=== PATIENT | male | born 1975 | race Caucasian/White ===

== ENCOUNTER 2019-05-30 10:41 | Inpatient (IN) | payer OTHER ==
[2019-05-30] VITALS (16 sets, daily range): BP systolic 106–135; BP diastolic 73–86
[~2019-05-30] VITALS: Ht 182.9 cm; Wt 96.2 kg
--- NOTE | ~2019-05-30 | O ---
[facility] [place] [address] OPERATIVE REPORT Name: DAVJANE Room #: 464-P ADM IN M.R.#: [id number] Admission: 05/30/19 Attend Phys: Paolo Jo MD Discharge: Date of : 71 Report #: [id number] THIS REPORT FOR: //name// CC: [facility] physician/PCP Paolo Jo PREOPERATIVE DIAGNOSES: Right sternoclavicular joint infection with right anterior subcutaneous chest abscess. POSTOPERATIVE DIAGNOSIS: Right sternoclavicular joint infection with right anterior subcutaneous chest abscess. PROCEDURE PERFORMED: Irrigation and debridement of right sternoclavicular joint infection and right anterior chest abscess. SURGEON: Chintan Jones M.D. BRICK SIDING APPLICATOR: Hollie Taylor PA-C ANESTHESIA: General. FLUIDS: 200 mL crystalloid. SPECIMENS: Cultures of the anterior chest abscess and sternoclavicular joint were obtained. DESCRIPTION OF PROCEDURE: After proper identification of the patient and operative site in preoperative holding area, the operative site was signed by myself. The patient was initially seen and treated by my partner, Dr. Jane Jacobs. The patient has developed what appears to be sternoclavicular joint infection with an anterior chest abscess to this. There does not appear to be any evidence of infection deep to the sternoclavicular joint or more intrathoracic. The patient is also being seen by ____ of Infectious Disease. After reviewing the patient's current symptoms, physical exam, and imaging data, we discussed treatment options with the patient. We reviewed the risks, benefits, alternatives and potential complications. The patient at this point wishes to proceed with the above-proposed procedure. He was brought back to the operative suite after induction of satisfactory general anesthesia per LMA. The chest was sterilely prepped and draped in the usual manner. The patient had a fullness overlying the sternoclavicular joint and very faint erythema. It was definitely asymmetric compared to the opposite side, and he had moderate tenderness over this region. An incision directly overlying the sternoclavicular joint was planned. Full thickness skin flaps were developed and the subcutaneous abscess was entered, tunneled under the subcutaneous tissues above the fascial layer for several centimeters especially in a more lateral and inferior direction. This area was bluntly debrided and then a lap on a hemostat was used to kind a mechanically debride this area followed by [address] [address] OPERATIVE REPORT Name: JANE DEMARCO Room #: 464-P ADM IN .R.#: [id number] Admission: 05/30/19 Attend Phys: Paolo Jo MD Discharge: Date of : 71 Report #: [id number] several liters of antibiotic irrigant. After this area had been fully irrigated and debrided, the sternoclavicular joint was opened anteriorly. There did not appear to be any obvious purulence to this fluid and then this was irrigated with several liters of antibiotic irrigant as well. Following this, there appeared to be one continuous pocket of fluid or abscess, did not appear to be loculated. There appeared to be no other spread of this and 3/8th inch [place] drain was placed and then the superior and inferior aspect of the incision was closed with 3-0 nylon. Plan will be for the [place] drain to be removed in several days depending on how he responds to this treatment with the potential need for further irrigation and debridement. We will continue to monitor with Dr. Jacobs. By: 0945 1108 Chintan Jones MD /nt
[2019-05-30 11:21] LABS: HEMATOCRIT 45.1 % (42.0-52.0); HEMOGLOBIN 15.2 gm/dL (14.0-18.0); MCH 27.9 pg (26.0-34.0); MCHC 33.6 g/dL (28.0-37.0); MCV 83.1 fL (80.0-100.0); PLATELET COUNT 748 thou/uL (150-400); RBC 5.44 mil/uL (4.50-6.00); RDW 14.1 % (10.5-14.5); WBC 22.5 thou/uL (4.0-11.0)
[2019-05-30 11:33] LABS: APTT 26.4 Seconds (24.5-32.8); INR 1.2; PROTIME 12.3 Seconds (9.3-11.4)
[2019-05-30 11:41] LABS: ALBUMIN 1.8 g/dL (3.4-5.0); CALCIUM 9.6 mg/dL (8.5-10.1); CREATININE 1.2 mg/dL (0.7-1.3); TOTAL BILIRUBIN 0.9 mg/dL (<0.1-1.0); TOTAL PROTEIN 9.4 g/dL (6.4-8.2)
[2019-05-30 11:50] LABS: ABSOLUTE NEUTROPHILS 19.6 thou/uL (1.4-8.2); TOXIC GRANULATION 2+
[2019-05-30 11:51] LABS: LARGE PLATELETS FEW; PLATELET ESTIMATE MARKEDLY INCREASED
[2019-05-30 11:52] LABS: POIKILOCYTOSIS SLIGHT; POLYCHROMASIA SLIGHT
--- NOTE | 2019-05-30 16:10 | NUR ---
43 Y/O MALE ADMITTED TO ICU 241 PER CART FROM THE ED. RT FOOT WOUND OOZING SEROUS SANG PURLENT FLUID. ASSESSMENT COMPLETED AND ATTACHED TO MONITOR.
--- NOTE | 2019-05-30 17:15 | NUR ---
LEFT KNEE ASPIRATED BY DR MILAN OF 50 ML OF CLOUDY YELLOW FLUID. PATIENT TOLERATED PROCEDURE WITHOUT INCIDENT.
--- NOTE | 2019-05-30 18:45 | NUR ---
PATIENT TO MRI FOR FURTHER STUDIES OF RT ANKLE AND LOWER EXTERMITY TO DETERMINE THE EXTENT OF THE INFECTION WITH CARDIA MONITOR. INSULIN DRIP OFF FOR MRI.
[2019-05-30 20:44] LABS: BF CRYSTALS No Crystals seen; SOURCE SYNOVIAL
[2019-05-30 20:45] LABS: CLARITY CLOUDY; COLOR YELLOW; SOURCE KNEE JOINT; TOTAL VOLUME 35 mL
--- NOTE | 2019-05-30 21:00 | NUR ---
BACK FROM MRI AT APPROXIMATELY 2100. INSULIN GTT RESTART. HOURLY BS INITIATED. PICTURES OF RIGHT FOOT WOUNDS TAKE AND WOUND CARE PERFROMED. MEDICATED FOR PAIN RELEIF. WILL CONTINUE TO MONITOR
[2019-05-30 21:07] LABS: BF NUCLEATED CELLS 6346; BF RBC 56400
[2019-05-30 21:17] LABS: BF MACROPHAGE 0; BF NEUTROPHILS 100
[2019-05-31] VITALS (40 sets, daily range): BP systolic 88–146; BP diastolic 54–87
[2019-05-31 00:03] LABS: CALCIUM 7.9 mg/dL (8.5-10.1); CREATININE 0.7 mg/dL (0.7-1.3)
[2019-05-31 00:06] LABS: POTASSIUM 3.8 mmol/L (3.5-5.1)
--- NOTE | 2019-05-31 05:11 | NUR ---
PT AOX4, SLOW TO PROCESS INFORMATION. TRIED TO EDUCATE ABOUT NEW DIABETIC DIAGNOSIS, PT ADAMANT HE ISN'T DIABETIC. PT CURRENTLY UNAWARE HE IS SCHEDULE FOR SURGERY THIS AM. VSS. LOW GRADE TEMP. ON 2L NC. DESATS DURING SLEEP. MEDICATED FOR PAIN RELIEF. ON INSULIN GTT, TITRATED PER PROTOCOL. TALKED TO DR. BLACKBURN ABOUT PT THIS AM. WILL CONTINUE TO MONITOR PATIENT.
[2019-05-31 05:56] LABS: HEMATOCRIT 36.8 % (42.0-52.0); HEMOGLOBIN 12.5 gm/dL (14.0-18.0); MCH 27.6 pg (26.0-34.0); MCHC 33.8 g/dL (28.0-37.0); MCV 81.6 fL (80.0-100.0); RBC 4.52 mil/uL (4.50-6.00); RDW 13.9 % (10.5-14.5); WBC 18.9 thou/uL (4.0-11.0)
[2019-05-31 06:11] LABS: CALCIUM 8.2 mg/dL (8.5-10.1); CREATININE 0.6 mg/dL (0.7-1.3); MAGNESIUM 1.6 mg/dL (1.8-2.4); POTASSIUM 3.8 mmol/L (3.5-5.1)
--- NOTE | 2019-05-31 07:59 | HC ---
[facility] [place] [place] [address] CONSULTATION Name: JANE DEMARCO Room #: 241-P ADM IN M.R.#: [id number] Admission: 05/30/19 Attend Phys: Paolo Jo MD Discharge: Date of : 71 Report #: [id number] THIS REPORT FOR: //name// CC: [facility] physician/PCP Paolo Jo DATE OF SERVICE: 05/31/2019 INFECTIOUS DISEASE CONSULTATION ATTENDING PHYSICIAN: Dr. Jo. REASON FOR EVALUATION: Severe sepsis, necrotizing infection involving his right foot. HISTORY OF PRESENT ILLNESS: The patient is a 43-year-old male without significant medical history prior to this point, who developed a lesion in right foot had increasingly got worse in course of several days and the weeks. He has had some systemic illness as well with fevers and chills, anorexia and some weight loss, became more nauseated and made it difficult to walk due to the pain. Initial evaluation suggested the diagnosis of diabetes mellitus with blood sugar excess of 500 and albumin of 1.8 as well. Creatinine was normal at 1.2. Imaging in the foot and the leg showed some changes at deep including suspected necrotizing fasciitis, myositis, trace amount of gas along the anterior margin of the posterior tibialis. There is evidence of osteomyelitis of the hind foot involving the talus and calcaneus as well. Blood cultures collected at time of admission with growth of gram-positive cocci, awaiting ID, started empirically on broad-spectrum therapy with vancomycin as well as piperacillin and tazobactam. He is not overtly toxic at this point. ALLERGIES: None known. MEDICINES: Include Zosyn, vancomycin, hydromorphone, insulin. PAST MEDICAL HISTORY: Tonsillectomy and adenoidectomy. SOCIAL HISTORY: Nonsmoker, no ethanol. FAMILY HISTORY: Noncontributory. REVIEW OF SYSTEMS: Denies significant pulmonary or gastrointestinal complaints, otherwise unremarkable 10-point review of systems. PHYSICAL EXAMINATION: GENERAL: Appears somewhat chronically ill. He is alert, cooperative, although he is in denial about a diagnosis of diabetes. [facility] [address] [place] [address] CONSULTATION Name: JANE DEMARCO Room #: 241-P [facility] IN ..#: [id number] Admission: 05/30/19 Attend Phys: Paolo Jo MD Discharge: Date of : 71 Report #: [id number] VITAL SIGNS: Temperature 98, T-max overnight 99.5, pulse 96, respirations 18 and blood pressure 124/70. SKIN: Warm, dry. HEENT: Normocephalic. Extraocular muscles intact. Poor dentition. NECK: Supple. LUNGS: Otherwise, clear breath sounds. HEART: Regular. Borderline tachycardic. I do not appreciate murmur. ABDOMEN: Soft, nontender and nondistended. EXTREMITIES: Dressing over the foot did review the some photographs showed necrotic areas along the dorsum malleolus, inflammatory changes noted extending up to the leg. GENITOURINARY AND RECTAL: Deferred. LABORATORY DATA: Electrolytes: Sodium 117, potassium 5.0, chloride 81, bicarbonate is 32, anion gap of 4, BUN and creatinine 13 and 1.2, glucose of 519. LFTs unremarkable. Albumin of 1.8, total protein of 9.4. Lactic acid 5.4 initially. CBC: White count of 22.5, H and H 15.2 and 45.1, platelets of 748, did have 28% bands, 2+ toxic granulations, procalcitonin of 7.25. Repeat lactic acid was 1.8. MRI of the tibia fibula without contrast showed necrotizing fasciitis, myositis involving the extensor digitorum longus muscle, stenosing tenosynovitis with gas in the muscle belly and tendon sheath. The MRI of the foot suspected osteomyelitis involving the hind foot, talus and calcaneus specifically. Repeat creatinine was 0.7. Blood cultures 2/2 positive for gram-positive cocci. ASSESSMENT: Necrotizing infection involving the right foot. The patient with newly diagnosed diabetes mellitus. His features clearly of septicemia as well. Continue broad-spectrum antimicrobial therapy, presume staphylococcus or streptococcus. Go ahead and order an echocardiogram, await those results. We will likely need followup blood cultures. There has been discussion, although I think that he has not at this point agreeable to go ahead with below-knee amputation. Thank you. We will follow. <ELECTRONICALLY SIGNED> By: Joaquín Denise MD 05/31/19 0759 0601 0750 Joaquín Denise MD /nt
--- NOTE | 2019-05-31 08:33 | NUR ---
TO OR PER BED AT 0823 WITH HOOP BENDING MACHINE OPERATOR.
--- NOTE | 2019-05-31 13:00 | NUR ---
1147 RETURNED TO ROOM 241 FROM PACU POST RT BKA AND LEFT KNEE ARTHOSCOPY. ATTACHED TO MONITOR AND ASSESSED, INSULIN AND MAG DRIPS INFUSING. VLADIMIR DE LEON APPLIED FOR AXILLAY TEMP OF 96.3.
--- NOTE | 2019-05-31 19:00 | NUR ---
CHENCHO DE LEON REMOVED AT 1500 PATIENT WARMED UP AND ALERT AND ORIENTED. DENIES PAIN FROM SURGICAL SITES. MOTHER AT BEDSIDE. PATIENT STILL IN DENIAL THAT HE IS DIABETIC. UPDATED MOTHER AND PATIENT WITH POC AND THAT EDUCATION WOULD BE PROVIDED AND ASSISTANCE WAS AVAILABLE. INSULIN DRIP OFF
[2019-06-01] VITALS (22 sets, daily range): BP systolic 96–127; BP diastolic 61–80
[2019-06-01 01:05] LABS: GLYCOHEMOGLOBIN (HGB A1C) 11.7 % (4.8-5.6)
--- NOTE | 2019-06-01 04:22 | NUR ---
ASSUMED CARE OF PT. AT 1900. PT. WAS PRETTY DROWSY AT THE BEGINNING OF SHIFT, BUT WOKE UP AT AROUND 2200. PT. HAS GENERALIZED PAIN FROM SURGERY. ALL DRESSINGS STILL DRY AND INTACT. INTRODUCTION TO TURN, COUGH, DEEP BREATH TOPIC. NEEDS REINFORCEMENT. VSS. ASSESSMENTS AND VITAL SIGNS CHARTED. PT. IS PROGRESSING TOWARDS GOALS. WILL CONTINUE TO MONITOR.
[2019-06-01 05:50] LABS: HEMATOCRIT 33.7 % (42.0-52.0); HEMOGLOBIN 11.3 gm/dL (14.0-18.0); MCH 27.9 pg (26.0-34.0); MCHC 33.7 g/dL (28.0-37.0); MCV 82.9 fL (80.0-100.0); RBC 4.06 mil/uL (4.50-6.00); RDW 13.8 % (10.5-14.5); WBC 16.3 thou/uL (4.0-11.0)
[2019-06-01 05:58] LABS: CALCIUM 7.4 mg/dL (8.5-10.1); CREATININE 0.5 mg/dL (0.7-1.3); MAGNESIUM 1.8 mg/dL (1.8-2.4); POTASSIUM 3.9 mmol/L (3.5-5.1)
--- NOTE | 2019-06-01 08:37 | NUR ---
PT S/P R BKA AND L KNEE I&D. THERAPY HAD NOT BEEN INITIATED PRIOR TO SURGERY. REQUEST NEW P.T. ORDERS WITH RESTRICTIONS/LIMITATIONS ONCE PT IS MEDICALLY STABLE TO PARTICIPATE IN THERAPEUTIC ACTIVITIES.
--- NOTE | 2019-06-01 09:37 | 2DMMODE ---
[facility] [place] [address] 2 D/M-MODE ECHOCARDIOGRAM Name: JANE DEMARCO Room #: 241-P ADM IN M.R.#: [id number] Admission: 05/30/19 Attend Phys: Paolo Jo, Discharge: Date of : 71 Date of Service: 06/01/19 0937 Report #: [id number] THIS REPORT FOR: //name// APPROVED REPORT Study performed: 06/01/2019 08:28:41 EXAM: Comprehensive 2D, Doppler, and color-flow Echocardiogram Patient Location: ICU Room #: 241 Status: routine BSA: 2.18 HR: 89 bpm BP: 124/74 mmHg Rhythm: NSR Other Information Study Quality: Good Indications Diabetes 2D Dimensions IVSd: 8.72 (7-11mm) LVOT Diam: 24.63 (18-24mm) LVDd: 56.03 mm PWd: 9.17 (7-11mm) Ascending Ao: 33.66 (22-36mm) LVDs: 40.69 (25-40mm) Aortic Root: 32.43 mm IVC: 18.00 mm Volumes Left Atrial Volume (Systole) Single Plane 4CH: 41.22 mL Single Plane 2CH: 30.23 mL LA ESV Index: 19.00 mL/m2 Aortic Valve AoV Peak Rodrigo.: 1.20 m/s AO Peak Gr.: 5.71 mmHg LVOT Max P.82 mmHg LVOT Max V: 1.10 m/s STAN Vmax: 4.37 cm2 Mitral Valve E/A Ratio: 1.4 MV Decel. Time: 224.17 ms MV E Max Rodrigo.: 1.07 m/s MV A Rodrigo.: 0.75 m/s [facility] [address] [place] [address] 2 D/M-MODE ECHOCARDIOGRAM Name: JANE DEMARCO Room #: [facility] IN ..#: [id number] Admission: 05/30/19 Attend Phys: Paolo Jo, Discharge: Date of : 71 Date of Service: 06/01/19 0937 Report #: [id number] MV PHT: 65.01 ms IVRT: 101.50 ms Pulmonary Valve PV Peak Rodrigo.: 1.12 m/s PV Peak Gr.: 5.00 mmHg Pulmonary Vein P Vein S: 0.45 m/s P Vein A: 0.21 m/s P Vein D: 0.44 m/s P Vein A Dur.: 92.3 msec P Vein S/D Ratio: 1.02 Tricuspid Valve TR Peak Rodrigo.: 2.88 m/s TR Peak Gr.: 33.14 mmHg PA Pressure: 38.00 mmHg Left Ventricle The left ventricle is normal size. There is normal LV segmental wall motion. There is normal left ventricular wall thickness. Left ventricular systolic function is normal. The left ventricular ejection fraction is within the normal range. LVEF is 55-60%. The left ventricular diastolic function is normal. Right Ventricle The right ventricle is normal size. The right ventricular systolic function is normal. Atria The left atrium size is normal. The right atrium size is normal. Aortic Valve The aortic valve is normal in structure. No aortic regurgitation is present. There is no aortic valvular stenosis. Mitral Valve The mitral valve is normal in structure. There is no mitral valve regurgitation noted. No evidence of mitral valve stenosis. Tricuspid Valve The tricuspid valve is normal in structure. There is trace tricuspid regurgitation. Estimated PAP 38 mmHg. Pulmonic Valve The pulmonary valve is normal in structure. There is no pulmonic valvular regurgitation. [address] [address] 2 D/M-MODE ECHOCARDIOGRAM Name: JANE DEMARCO Room #: 241-P [facility] IN [facility].#: [id number] Admission: 05/30/19 Attend Phys: Paolo Jo, Discharge: Date of : 71 Date of Service: 06/01/19 0937 Report #: [id number] Great Vessels The aortic root is normal in size. IVC is normal in size and collapses >50% with inspiration. Pericardium There is no pericardial effusion. <Conclusion> Left ventricular systolic function is normal. There is normal LV segmental wall motion. LVEF is 55-60%. Normal diastolic The aortic valve is normal in structure. No aortic regurgitation or stenosis. The mitral valve is normal in structure. No mitral valve regurgitation. There is trace tricuspid regurgitation. Estimated pulmonary artery pressure of 38 mmHg. There is no pericardial effusion. <ELECTRONICALLY SIGNED> By: Pipe Green MD, FACC 06/01/1939 6 Pipe Green MD, FACC /INF
--- NOTE | 2019-06-01 09:52 | NUR ---
New onset diabetes and s/p BKA on 05/31. Will address nutrition education needs with pt and mother once transferred out of ICU, diet advanced and more stable.
--- NOTE | 2019-06-01 12:29 | O ---
[facility] [place] [address] OPERATIVE REPORT Name: JANE DEMARCO Room #: 241-P ADM IN M.R.#: [id number] Admission: 05/30/19 Attend Phys: Paolo Jo MD Discharge: Date of : 71 Report #: [id number] THIS REPORT FOR: //name// CC: [facility] physician/PCP Paolo Jo DATE OF SERVICE: 05/31/2019 PREOPERATIVE DIAGNOSES: 1. Left knee septic arthritis. 2. Right leg gangrene. POSTOPERATIVE DIAGNOSES: 1. Left knee septic arthritis. 2. Right leg gangrene. PROCEDURES: 1. Left knee irrigation and debridement arthroscopic. 2. Right ecqpo-vhi-jder amputation. SURGEON: Jane Jacobs M.D. ANESTHESIA: General. ESTIMATED BLOOD LOSS: 50 mL on the right and 0 on the left. TOURNIQUET TIME: On the left was 20 minutes and on the right was 45 minutes. DESCRIPTION OF PROCEDURE: The patient brought to the operating room where he was placed under general anesthesia. Once under adequate general anesthesia, his left lower extremity was prepped and draped in sterile manner. The extremity was elevated and tourniquet placed to 300 mmHg. An anterolateral arthroscopic portal was then made in the usual fashion. Abundant purulence did emanate from the joint. A suprapatellar portal was then placed for an outflow. The fluid was then driven through the joint to irrigate, approximately 6 L of normal saline solution was flushed through the joint for irrigation. Once complete, a Hemovac drain was placed through the suprapatellar portal and the wounds were closed with pablo for the skin. The wounds were dressed with Xeroform, 4 x 4s, and sterile soft compressive dressing was placed. Tourniquet was let down at 20 minutes. Toes were pink and warm with good capillary refill. The right lower extremity was then prepped and draped in a sterile manner. The extremity was elevated and a tourniquet placed 300 mmHg. A fishmouth type incision was then made sharply dissecting down to the tibia anteriorly and the fibula laterally. Exposure was made. There was some purulence noted as well. A pulsatile lavage was used to irrigate the wound and the anterior compartment was debrided with a rongeur. A fishmouth incision was taken down to the [address] [address] OPERATIVE REPORT Name: JANE DEMARCO Room #: 241-P [facility] IN M.R.#: [id number] Admission: 05/30/19 Attend Phys: Paolo Jo MD Discharge: Date of : 71 Report #: [id number] circumferentially and an oscillating saw was used to transect the tibia and a few centimeters proximal to this level, the fibula was then transected with the oscillating saw as well. The anterior tibia was then bevelled with the oscillating saw and the amputation was completed. The posterior tibial vessels were suture ligated with 0 silk suture. The wound was irrigated once again copiously and closed with #1 Vicryl in the deep fascia, repairing the posterior flap to the anterior tibia, 0 Vicryl was used in the deep fascial layer, 2-0 Vicryl was used in subcutaneous tissues, and pablo were used for the skin. A Hemovac drain had been placed prior to wound closure. The wound was dressed with Xeroform, 4 x 4s, and a sterile soft compressive dressing was placed. Tourniquet was let down at approximately 45 minutes. There were no complications from the procedure. The patient tolerated the procedure well and went to the recovery room without incident. <ELECTRONICALLY SIGNED> By: Jane Jacobs MD 06/01/19 1229 1052 1114 Jane Jacobs MD /nt
--- NOTE | 2019-06-01 16:54 | NUR ---
INITIAL ASSESSMENT: Received consult for discharge planning. SW reviewed chart and spoke with attending physician. Pt was admitted from home due to right foot osteomyelitis/severe sepsis. Pt is POD#1 right BKA nd left knee I&D. Pt is on IV abx. Therapies ordered to evaluate pt. Pt remains in ICU. SW met with pt at bedside. Introduced role of SW. Pt is alert/orientated. Pt states he lives at home with his mother. Prior to admission, pt was independent with ADLs. No use of DME. No hx of services. SW discussed that [facility] is following pt for possible admission to in acute rehab. Pt is agreeable with going to [facility]. Pt requested SW contact his mother. Pt unable to answer if he has health insurance. Per chart, pt lives in a duplex with his mother. 8 steps to ener the duplex. Pt is not employed. Pt does not have a PCP. Awaiting therapy evals and [facility] eval at this time. Face sheet faxed to [employer] to assist with Medicaid application or financial assistance. SW is following to assist as needed with discharge planning.
[2019-06-01 18:06] LABS: URINE BILIRUBIN NEGATIVE (Negative); URINE BLOOD 3+ (Negative); URINE CLARITY CLEAR; URINE COLOR YELLOW; URINE GLUCOSE-RANDOM* 1+ (Negative); URINE KETONES NEGATIVE (Negative); URINE LEUKOCYTES-REFLEX TRACE (Negative); URINE NITRITE-REFLEX NEGATIVE (Negative); URINE PROTEIN (DIPSTICK) TRACE (Negative)
[2019-06-01 18:13] LABS: CASTS None Seen /LPF (None Seen); CRYSTALS None Seen /LPF (None Seen); SQUAMOUS None Seen /LPF (0-3); URINE RBC 3-10 Few /HPF (0-2); URINE WBC-REFLEX 0-5 Rare /HPF (0-5)
--- NOTE | 2019-06-01 19:54 | NUR ---
ASSUMED CARE THIS AM, AWAKE AND ALERT. OX4. COMPLIANTS OF PAIN IN RIGHT SHOULDER, ACROSS CHEST AND NECK. MOTHER AT BEDSIDE AND SAYS THIS HAS BEEN GOING ON FOR ABOUT A WEEK. DR. QUIROZ INFORMED. LOW GRADE TEMP TODAY. DILAUDID 0.5 GIVEN WITH GOOD PAIN CONTROL. HEMOVACS TO R BKA AND LEFT KNEE INTACT AND COMPRESSED. DRESSINGS CDI. OT AND PT TO SEE PATIENT. BLOOD SUGARS CONTINUE TO BE HIGH. SLIDING SCALE STARTED AND CARB CONTROLLED DIET. TRANSFER TO MED SURG UNIT WHEN BED AVAILABLE
[2019-06-02] VITALS (7 sets, daily range): BP systolic 113–134; BP diastolic 59–82
[2019-06-02 05:16] LABS: ABSOLUTE NEUTROPHILS 10.6 thou/uL (1.4-8.2); BASOPHILS 1.2 % (0.0-2.0); EOSINOPHILS 0.8 % (0.0-3.0); HEMATOCRIT 31.3 % (42.0-52.0); HEMOGLOBIN 10.7 gm/dL (14.0-18.0); LYMPHOCYTES 11.2 % (24.0-44.0); MCH 28.3 pg (26.0-34.0); MCHC 34.1 g/dL (28.0-37.0); MCV 82.8 fL (80.0-100.0); MONOCYTES 6.4 % (1.0-8.0); PLATELET COUNT 449 thou/uL (150-400); POLYS 80.4 % (36.0-66.0); RBC 3.78 mil/uL (4.50-6.00); RDW 13.9 % (10.5-14.5); WBC 13.1 thou/uL (4.0-11.0)
--- NOTE | 2019-06-02 05:36 | NUR ---
PT IS BEING TRANSFERED OUT TO MED SURG RM 464. REPORT GIVEN TO HIEN ELY. STABLE VITALS . PAIN WELL CONTROLLED. PT HAD A LOW GRADE FEVER OVERNIGHT, LAST TEMP 98.9. PT WAS UPDATED ON PLAN OF CARE, AND I CALLED VALERIY HIS MOM AND LEFT MESSAGE ON HER PHONE.
[2019-06-02 05:42] LABS: CREATININE 0.5 mg/dL (0.7-1.3); POTASSIUM 3.8 mmol/L (3.5-5.1); TOTAL BILIRUBIN 0.4 mg/dL (<0.1-1.0); TOTAL PROTEIN 5.4 g/dL (6.4-8.2)
--- NOTE | 2019-06-02 06:33 | NUR ---
PATIENT ARRIVED IN THE UNIT AROUND 0600. PATIENT SLOW TO RESPOND TO QUESTIONS ASKED. LEFT KNEE AND RBKA DRESSING ARE C/D/I, HEMOVAC INTACT. PATIENT DENIED PAIN OR DISCOMFORT. PATIENT IN BED ASLEEP AT THIS TIME BREATHING REGULAR AND UNLABOURED
--- NOTE | 2019-06-02 16:06 | PATH ---
[facility] [place] [address] PATHOLOGY RPT PROCEDURE Name: JANE VARGAS Room #: 464-P ADM IN M.R.#: [id number] Admission: 05/30/19 Date of : 71 Discharge: Report #: [id number] Path Case #: [id number] [facility] Accession Number: [id number] . 01 Material submitted: . foot - RIGHT FOOT/ ANKLE BKA. Modifiers: right . 01 Clinical history: . Septic left knee, right leg gangrene . 02 Diagnosis: Lower extremity, right, below knee amputation: - Skin of foot with multiple ulcerations and associated underlying acute abscesses. - Viable skin and subcutaneous tissue present at margin of excision, however, deep subcutaneous tissue at margin of excision contains acute abscess. - Anterior and posterior arteries with mild to moderate calcified atherosclerosis, non-occlusive. . (MARCE:sam; 06/02/2019) QLM/06/02/2019 . 02 Electronically signed: . Renzo Caban MD, Pathologist NPI- [id number] . 01 Gross description: . The specimen is received fresh in a red biohazard bag, labeled "Jane Vargas". No source is listed on the container. The source is listed on the requisition as, "right foot/ankle (BKA)". Received is a right uatdo-ugm-njnm amputation specimen measuring 26.2 cm from heel to toe, 19.3 cm from heel to skin margin, 26.8 cm from heel to tibial bone margin, and 29.8 cm from heel to fibular bone margin. The skin and soft tissue margins are viable. All five toes are present. Surrounding both ankles, extending onto the posterior and anterior aspects, and continuing down onto the foot are multiple light darling to red-brown, necrotic-appearing lesions ranging in size from 0.8 x 0.6 to 10.1 x 4.5 cm in greatest dimensions. All of these lesions encompass approximately 20% of the epidermal surface (gross photographs are taken). Sectioning through several of the lesions reveals-tinged exudate in the underlying soft tissue. Sectioning through the anterior tibial vasculature reveals patent lumens without calcification. Sectioning through the posterior tibial vasculature reveals patent lumens with a slight amount of calcification. The specimen is submitted representatively as follows: . A1 skin and soft tissue margin [address] [address] PATHOLOGY RPT PROCEDURE Name: JANE VARGAS Room #: 464-P ADM IN M.R.#: [id number] Admission: 05/30/19 Date of : 71 Discharge: Report #: [id number] Path Case #: [id number] A2 specialty sales representative sections of lesion overlying lateral malleolus A3 specialty sales representative sections of lesion on proximal dorsal aspect of foot A4 specialty sales representative sections of lesions on distal dorsal aspect of foot and medial aspect of foot proximal to medial malleolus A5 specialty sales representative sections of lesion overlying Achilles area proximal to the heel A6 anterior tibial vasculature A7 posterior tibial vasculature, following light decalcification. . Please see attached photographs for diagram of where sections were taken from. (CAA; 06/01/2019) QAC/QAC . 02 Pathologist provided ICD-10: K62.1 . 02 CPT . 550353 Specimen Comment: A courtesy copy of this report has been sent to Specimen Comment: [phone]. Specimen Comment: Report sent to Performed at: [address] [facility], [place] [id number] MD Jay Garnica MD Phone: [phone] Performed at: [address] [id number] MD Lorene Becerra MD Phone: [phone]
--- NOTE | 2019-06-02 17:28 | NUR ---
[facility] FOLLOWING FOR POSSIBLE ADMISSION. CM TO FOLLOW INDICATED WITH DC PLANNING.
--- NOTE | 2019-06-02 17:54 | NUR ---
PT STABLE THROUGHOUT SHIFT. DRESSINGS CHANGED. PT HAD CT OF SHOULDER WHICH HE TOLERATED WELL. PT TO HAVE PORCEDURE ON SHOULDER TOMORROW, CONSENT SIGNED AND ON CHART. PT C/O PAIN, MANAGED WITH MEDICATION. FAMILY AT BEDSIDE.
--- NOTE | 2019-06-02 19:07 | NUR ---
PATIENT SEEN BY GABRIELA SIMONS NP WITH DR. RUTHERFORD. ANTICIPATE THAT PATIENT WILL MEET CRITERIA FOR ACUTE REHAB. WILL FOLLOW AND CONTINUE TO EVALUATE. THANK YOU FOR THIS REFERRAL.
[2019-06-03] VITALS (11 sets, daily range): BP systolic 133–149; BP diastolic 80–90
--- NOTE | 2019-06-03 04:24 | NUR ---
Assumed pt care at 1900. Pt is A/OX4 with a flat affect. VSS. C/o pain to right shoulder/left knee medicated per EMAR with relief reported. Pt aware of I&D scheduled for today and has been NPO since midnight. Casper to DD draining dark yellow urine. IVF infusing without any problems. Dsgs to Right stump,left knee C/D/I.Resting quietly at this time with no distress noted. Will continue to monitor.
[2019-06-03 05:56] LABS: HEMATOCRIT 32.5 % (42.0-52.0); HEMOGLOBIN 10.8 gm/dL (14.0-18.0); MCH 27.4 pg (26.0-34.0); MCHC 33.3 g/dL (28.0-37.0); MCV 82.1 fL (80.0-100.0); RBC 3.96 mil/uL (4.50-6.00); RDW 13.8 % (10.5-14.5); WBC 12.4 thou/uL (4.0-11.0)
[2019-06-03 06:25] LABS: CALCIUM 7.6 mg/dL (8.5-10.1); CREATININE 0.7 mg/dL (0.7-1.3); MAGNESIUM 1.9 mg/dL (1.8-2.4); POTASSIUM 4.1 mmol/L (3.5-5.1)
--- NOTE | 2019-06-03 20:53 | NUR ---
ASSUMED CARE OF PT AT APPROX 0700. PT IS LAERT AND ORIENTED X3. FORGETFUL AT TIMES. ABLE TO MAINTAIN 02 SAT >90 ON 2LNC. ASSEEMENT CHARTED. PT DOWN FOR I AND D OF LEFT SHOULDER RETURNED AROUND LUNCH TIME. NAD NOTED. PARRA TO DD WITH ADEQUATE OUTPUT. PT MAKING SLOW PROGRESS TOWARDS POC.
[2019-06-04 00:46] VITALS: BP 142/77
[2019-06-04 03:55] VITALS: BP 141/77
[2019-06-04 04:28] VITALS: BP 141/77; BP 150/59
--- NOTE | 2019-06-04 06:16 | NUR ---
A/O X 4.FEBRILE.TYLENOL AND BLOOD CULTURES WAS ORDERED BY LOW VOLTAGE ELECTRICIAN.AFEBRILE THIS AM.PARRA TO DD.BLOOD GLUCOSE 319.LANTUS AND SLIDING SCALE GIVEN.TRIED TO TITRATE O2 TO ROOM AIR BUT PATIENT'S SPO2 WAS 90% THIS AM AND PLACED PT BACK TO 2L NASAL CANNULA.WILL MONITOR AND CONTINUE POC.
[2019-06-04 07:06] LABS: HEMATOCRIT 32.2 % (42.0-52.0); HEMOGLOBIN 11.1 gm/dL (14.0-18.0); MCH 28.3 pg (26.0-34.0); MCHC 34.6 g/dL (28.0-37.0); MCV 81.7 fL (80.0-100.0); RBC 3.94 mil/uL (4.50-6.00); RDW 14.1 % (10.5-14.5); WBC 13.7 thou/uL (4.0-11.0)
[2019-06-04 07:21] LABS: CALCIUM 7.6 mg/dL (8.5-10.1); CREATININE 0.7 mg/dL (0.7-1.3); POTASSIUM 4.1 mmol/L (3.5-5.1)
[2019-06-04 07:53] VITALS: BP 134/78
--- NOTE | 2019-06-04 14:40 | NUR ---
[facility] FOLLOWING REGARDING POSSIBLE ADMISSION ONCE MEDICALLY STABLE. CM TO NATASHA INDICATED WITH DC PLANNING.
[2019-06-04 15:56] VITALS: BP 133/72
[2019-06-04 19:31] VITALS: BP 142/86
[2019-06-05 03:45] VITALS: BP 141/84
--- NOTE | 2019-06-05 04:51 | NUR ---
ASSESSMENT: PT REMAIN ALERT AND ORIENT TIMES FOUR, SLOW TO RESPOND TO QUESTIONS, DOES HAVE A FLAT AFFECT, AND APPEARS TO UNDERSTAND WHAT IS GOING ON WITH HIS CARE. RIGHT CHEST DANO DRAIN NOTED WITH SS DRAINAGE. PARRA PATENT WITH DARK JUAN ANTONIO UO. NO MBM THIS SHIFT. NEW IV INITIATED OF RIGHT FA 22G. IV HYDROMORHONE GIVEN WITH GOOD RELIEF PER PT. VVS, AFEBRILE. SLOW PROGRESS, WILL CONTINUE TO MONITOR.
--- NOTE | 2019-06-05 06:47 | NUR ---
ASSESSMENT: PT HAS HAD TWO EPISODES OF PROJECTILE VOMITING. ZOFRAN ORDERED.
[2019-06-05 08:00] VITALS: BP 135/78
[2019-06-05 09:15] LABS: HEMATOCRIT 31.9 % (42.0-52.0); HEMOGLOBIN 10.8 gm/dL (14.0-18.0); MCH 27.8 pg (26.0-34.0); MCHC 33.9 g/dL (28.0-37.0); MCV 82.1 fL (80.0-100.0); RBC 3.88 mil/uL (4.50-6.00); WBC 15.1 thou/uL (4.0-11.0)
[2019-06-05 09:27] LABS: CALCIUM 7.9 mg/dL (8.5-10.1); CREATININE 0.6 mg/dL (0.7-1.3); POTASSIUM 3.9 mmol/L (3.5-5.1)
[2019-06-05 09:32] LABS: CHOLESTEROL 103 mg/dL (<200); HDL CHOLESTEROL 17 mg/dL (>40); LDL CHOLESTEROL 67 mg/dL (<100); TC:HDL 6.1 Ratio (Not establshd); TRIGLYCERIDE 99 mg/dL (<150); VLDL 20 mg/dL (<40)
--- NOTE | 2019-06-05 13:36 | NUR ---
Received awake on bed. Due medications given as prescibed, able to swallow tablets w/o difficulty. A+Ox4, flat affect noted. On room air. On blood sugar monitoring- taken and recorded, sliding scale insulin given as prescribed. With salas in place, draining well- output measured and recorded accordingly. With keeley drain in place. With NS at 100cc/hr infusing well at R FA. With R BKA- dressing C/D/I, dispensing operator in place. Pt's mom in bedside. [facility] shift lead nurse reported pt has been having projectile vomiting, none noted dursing my shift, pt complained of nausea- PRN Zofran given as prescribed. Complained of pain, PRN pain meds given as prescribed. Pt seen by Dr Jacobs. Dr Jacobs called this PM- to remove keeley drain. Vital signs stable.
[2019-06-05 15:00] VITALS: BP 139/83
--- NOTE | 2019-06-05 17:46 | NUR ---
PATIENT HAS BEEN ACCEPTED TO [address] [place] [address]/ACUTE REHAB WHEN MEDICALLY READY. ANTICIPATE ADMISSION ON Saturday06/08/19. THANK YOU FOR THIS REFERRAL.
[2019-06-05 22:06] LABS: CALCIUM IONIZED* 4.7 mg/dL (4.5-5.6)
[2019-06-05 22:09] VITALS: BP 131/82
[2019-06-06 00:08] LABS: GLYCOHEMOGLOBIN (HGB A1C) 11.4 % (4.8-5.6)
--- NOTE | 2019-06-06 04:14 | NUR ---
ASSUMED CARE AROUND 1900. AXOX4. L KNEE DRESSING CDI. CHEST DRESSING CDI. STUMP SHIRINKER ON R BKA SITE. DENIES PAIN AT THIS TIME. NO S/S ACUTE DISTRESS NOTED OR REPORTED AT THIS TIME. WILL CONT TO MONITOR FOR ANY CHANGES IN CONDITION.
[2019-06-06 05:02] VITALS: BP 146/76
[2019-06-06 05:43] LABS: HEMATOCRIT 31.7 % (42.0-52.0); HEMOGLOBIN 10.7 gm/dL (14.0-18.0); MCH 27.9 pg (26.0-34.0); MCHC 33.8 g/dL (28.0-37.0); MCV 82.5 fL (80.0-100.0); RBC 3.85 mil/uL (4.50-6.00); RDW 13.9 % (10.5-14.5); WBC 11.6 thou/uL (4.0-11.0)
[2019-06-06 05:53] LABS: CALCIUM 7.8 mg/dL (8.5-10.1); CREATININE 0.6 mg/dL (0.7-1.3); POTASSIUM 3.5 mmol/L (3.5-5.1)
--- NOTE | 2019-06-06 08:09 | HC ---
[facility] [place] [address] CONSULTATION Name: JANE DEMARCO Room #: 464-P ADM IN M.R.#: [id number] Admission: 05/30/19 Attend Phys: Paolo Jo MD Discharge: Date of : 71 Report #: [id number] THIS REPORT FOR: //name// CC: YAMILE physician/PCP Paolo Jo DATE OF SERVICE: 06/03/2019 HISTORY OF PRESENT ILLNESS: We were asked to see the patient by Dr. Savage. The patient is a 43-year-old admitted 05/30/2019 with right foot infection. The patient was found to have subcutaneous gas on x-ray of the foot consistent with infection and clinically the patient was felt to be septic. All of this related to uncontrolled diabetes mellitus. The patient had a right bpont-pwi-aela amputation for the right foot gangrene and left knee arthroscopic exam with irrigation and debridement for septic arthritis. On 05/31/2019, the patient has had positive blood cultures for Staph aureus and a right supraclavicular joint infection was found and this was drained today by the orthopedic surgeons. A question was raised regarding endothelial infection because of persistent bacteremia, but the only imaging study pertinent is a transthoracic echo 05/30/2019 that was normal. No chest x-ray or chest CT scan exists currently. CURRENT MEDICATION: The patient reports taking no medication at home. Currently, the patient is on insulin, vancomycin, Zosyn, famotidine, narcotics for postoperative pain. ALLERGIES: None known. SOCIAL HISTORY: Tobacco use. The patient claims to be a nonsmoker and denies drug use. REVIEW OF SYSTEMS: CONSTITUTIONAL: Denies chills. EYES: Denies visual change. HEENT: Denies headache, rhinorrhea, sore throat. RESPIRATORY: Denies cough, shortness of breath. CARDIAC: Denies chest pain or palpitations. GASTROINTESTINAL: Had nausea and vomiting on admission, but denies GI blood loss. GENITOURINARY: No burning, frequency, urgency or blood. MUSCULOSKELETAL: No back pain, muscle pain. SKIN: Right foot infection as on admission. ENDOCRINE: Denies having diabetes. HEMATOLOGIC AND LYMPHATIC: No bleeding, no bruisability. [facility] [address] [place] [address] CONSULTATION Name: JANE DEMARCO Room #: 464-P [facility] IN .R.#: [id number] Admission: 05/30/19 Attend Phys: Paolo Jo MD Discharge: Date of : 71 Report #: [id number] PHYSICAL EXAMINATION: VITAL SIGNS: Blood pressure 133/83, heart rate 92, respiratory rate 18, temperature 98.2, O2 sat 90%. GENERAL: When examined, the patient was postop in the recovery room after the sternoclavicular debridement. He was a bit drowsy but answered questions and seemed to be in a reasonable state with some postoperative discomfort. HEENT: No scleral icterus, no arcus. Oral poor dentition. NECK: No mass, no bruit. CHEST: Clear. HEART: Rhythm regular. No murmurs. ABDOMEN: Soft. EXTREMITIES: We note the recently drained right supraclavicular infection and right xqcsv-nnf-cuzp amputation. SKIN: As mentioned, incisions in those areas. NEUROLOGIC: No obvious motor or sensory dysfunction. PSYCHIATRIC: Answers questions appropriately and although a bit groggy, oriented. ASSESSMENT AND PLAN: The patient has multiple areas of skin, soft tissue and deeper infection with persistent bacteremia. We understand the concerns related to endothelial infection, but there is no data as yet to substantiate this. We will await with the results of the transesophageal echo now scheduled for tomorrow for any other recommendations. Thank you for the consult. <ELECTRONICALLY SIGNED> By: Barry Gonzalez MD 06/06/19 0809 [id number] Barry Gonzalez MD /nt
[2019-06-06 08:12] VITALS: BP 133/77
[2019-06-06 15:51] VITALS: BP 140/84
--- NOTE | 2019-06-06 16:44 | NUR ---
Received awake on bed. Due medications given as prescribed. A+Ox4. On 2lpm via nasal cannula. With NS at 100cc/hr, infusing well at R FA. On blood sugar monitoring, taken and recorded accordingly. With salas in place, draining well- output measured and recorded. With R BKA- elevated on a pillow, hired hand in place, dressing changed today as per wound nurse orders; dressing on L knee dressing changed as well. A/w BRIONNA schedule. Vital signs stable. Pt visited by his mother today. Pt seen by PT today, tried to transfer on chair with AO3, unable to transfer him. Pt with skin tear on his bottom, pt turned on his sides, barrier cream applied. Pt encouraged to eat and drink. Assisted in ADLs. No nausea and vomiting noted today, afebrile the whole shift. Falls risk- falls bundle in place.
[2019-06-06 19:55] VITALS: BP 147/89
[2019-06-07 03:59] VITALS: BP 139/95
--- NOTE | 2019-06-07 04:53 | NUR ---
ASSUMED CARE AROUND 1900. AXOX4. L KNEE DRESSING, R BKA STUMP, MID CHEST DRESSIGS CDI. REFUSED TURNS. TRIED TO EXPLAINED THE R&B AND TRIED TO CONVICE FOR TURNS. REFUSES. NO S/S ACUTE DISTRESS NOTED OR REPORTED AT THIS TIME. WILL CONT TO MONITOR FOR ANY CHANGES IN CONDITION.
[2019-06-07 07:52] VITALS: BP 123/75
[2019-06-07 14:04] VITALS: BP 145/91
--- NOTE | 2019-06-07 15:18 | HC ---
[facility] [place] [address] CONSULTATION Name: DL DEMARCO Room #: 464-P ADM IN M.R.#: [id number] Admission: 05/30/19 Attend Phys: Paolo Jo MD Discharge: Date of : 71 Report #: [id number] THIS REPORT FOR: //name// CC: YAMILE physician/PCP Paolo Jo DATE OF SERVICE: 05/30/2019 WOUND CARE CONSULTATION NOTE REASON FOR CONSULTATION: Gangrene of right foot and new onset diabetic patient. HISTORY OF PRESENT ILLNESS: The patient is a 43-year-old gentleman with no previous history of diabetes mellitus, who presented himself to the Emergency Room at [facility], after first noticing a wound of his right foot two weeks ago. This got worse and worse. The foot became red with drainage and pain. The patient therefore came to the Emergency Room. He denies any previous history of diabetes. He has no history of significant medical illness. ALLERGIES: No known allergies. MEDICATIONS: No home medications. SOCIAL HISTORY: Does not smoke or drink. PAST SURGICAL HISTORY: Tonsillectomy. LABORATORY DATA: Today shows white blood count of 22,500. PHYSICAL EXAMINATION: GENERAL: Shows a generally well-appearing, young male, age 43, in no acute distress. His skin color is good. VITAL SIGNS: Pulse rate 103, respirations 16, temperature 37.2, blood pressure 112/75. HEENT: Mucous membranes are slightly dry. EXTREMITIES: Upper extremities are normal. ABDOMEN: Soft. Left leg shows no wounds. Examination of the right leg and foot shows gangrenous changes of the right foot. The right foot to the ankle is very edematous and reddened. There are dark necrotic black surface areas of skin on the dorsum of the foot and laterally with full-thickness gangrene of the skin. Examination of the lateral foot shows pus draining from an opening over the lateral malleolus. The entire foot is edematous, red, extremely tender, with focal gangrenes of the skin and draining pus laterally. Redness extends to the ankle. Slight patch of redness, anterior mid-calf, but not continuous with the foot. [facility] [address] [place] [address] CONSULTATION Name: BRANDEN DEMARCOEW Room #: 464-P ADM IN M.R.#: [id number] Admission: 05/30/19 Attend Phys: Paolo Jo MD Discharge: Date of : 71 Report #: [id number] IMPRESSION: Severe soft tissue infection of the right foot with focal gangrenous changes of the skin. Clinical abscess, involving the foot. The patient does not appear systemically septic, markedly with leukocytosis. Slight tachycardia. Severe dehydration. I spoke on the phone with Dr. Dl Jacobs, described the wound and indicated the need for surgical intervention. PLAN: 1. Vigorous fluid resuscitation. 2. Diabetes control with insulin, intravenous antibiotics. We will dress the wound with Silvadene, Xeroform and a Kerlix wrap. The patient will be made n.p.o. after midnight. Dr. Jacobs will evaluate and make surgical decisions. Counseled the patient about the possible need for surgery and threatened nature of the limb. MRI ordered by Dr. Jo to rule out bony involvement. The patient will be stabilized on IV fluid resuscitation and antibiotics and prepared for surgery. <ELECTRONICALLY SIGNED> By: Kumar Cuevas MD 06/07/19 1518 1639 0001 Kumar Cuevas MD /nt
[2019-06-07 20:45] VITALS: BP 132/80
--- NOTE | 2019-06-07 21:39 | NUR ---
PT A&OX4, VSS, DENIES PAIN/SOA/CHEST PAIN. ANTIBIOTICS HUNG ORDERED, NORMAL SALINE INFUSING ORDERED. MOTHER AT BEDSIDE. PATIENT REFUSED HALF Q2 TURNS, PATIENT IS BEGINNINGS TO HAVE BREAKDOWN ON BUTTOCK. POSSIBLE STAGE ONE ULCER ON RIGHT BUTTOCK PRESENT, WILL CONSULT WOUND CARE. PHOTO HAS BEEN TAKEN. WOUND CARE DRESSING CHANGED TODAY. PATIENT VOMITED AFTER BREAKFAST TODAY, ZOFRAN GIVEN. PATIENT HAS NOT WANTED TO EAT FOR THE REST OF DAY. WILL CONTINUE TO MONITOR.
--- NOTE | 2019-06-08 05:25 | NUR ---
PATIENT ALERT AND ORIENTED X4. DRESSING ON CHEST D/I. DRESSONG ON L KNEE D/I. DRESSING AND STUMP CHARACTER ARTIST ON RBKA INTACT. DENIES PAIN. ACCUCHECK WAS 79, OJUICE GIVEN. PARRA PATENT JUAN ANTONIO URINE. STAGE II WOUND ON COCCYX. BARRIER CREAM APLIED. SLEPT MOST OF NIGHT.
[2019-06-08 05:29] LABS: HEMATOCRIT 31.9 % (42.0-52.0); HEMOGLOBIN 10.6 gm/dL (14.0-18.0); MCHC 33.1 g/dL (28.0-37.0); MCV 81.6 fL (80.0-100.0); RBC 3.9 mil/uL (4.50-6.00); WBC 18.3 thou/uL (4.0-11.0)
[2019-06-08 05:52] LABS: CALCIUM 7.8 mg/dL (8.5-10.1); CREATININE 0.5 mg/dL (0.7-1.3); POTASSIUM 3.2 mmol/L (3.5-5.1)
[2019-06-08 08:51] VITALS: BP 140/76
--- NOTE | 2019-06-08 10:40 | NUR ---
Nutrition education completed with mother and pt on 06/03
--- NOTE | 2019-06-08 15:39 | NUR ---
PT IS TO BE NPO THIS EVENING AND IS TO HAVE A BRIONNA TOMORROW MORNING. PT WILL THEN GO TO [facility]. CM TO FOLLOW INDICATED WITH DC PLANNING.
[2019-06-08 16:36] VITALS: BP 126/68
[2019-06-08 20:08] VITALS: BP 148/76
--- NOTE | 2019-06-08 20:27 | NUR ---
CONSULTED TO PLACE A PICC FOR A PATIENT NEEDING HOME IV ANTIBIOTICS. ORDER AND CONSENT NOTED. THE PROCEDURE WELL BENIFITS AND RISK OF DVT AND INFECTION DISCUSSED AND HE VERBALIZED UNDERSTANDING, THE LEFT UPPER ARM BASILIC WAS WIDLEY PATENT. A #4F SINGLE LUMEN POWER PICC WAS PLACED PER HOSPITAL POLICY AFTER A BEDSIDE TIMEOUT WAS COMPLETED. PICC WAS TRIMMED TO 47CM AND ADVANCED WITHOUT DIFFICULTY. A STAT CHEST XRAY CONFIRMED THE PICC WAS IN GOOD POSITION. 4W APRON TRIMMER NOTIFIED THAT LINE IS RELEASED FOR USE
--- NOTE | 2019-06-08 21:36 | NUR ---
Assumed pt care this am, pt is refuses to drink his supplements or have a decent part of his meals. Pt prefers to have popsicles throug out the day. Does not want to stick to the care plan, initially refused wound care til late in the afternoon during shift change. Wound care consulted for the right buttors, care done. Wound dressing and stump care done. Blood sugar levels would be low due to poor intake, offered orange juice in the am leverl elevatedx. POC followed , no signs of distress have been noted or verbalized. Pt is to be NPO this midnight for BRIONNA lynette am, pt is advised.
[2019-06-09 03:59] VITALS: BP 160/77
--- NOTE | 2019-06-09 04:44 | NUR ---
ASSUMED CARE AROUND 1900. AXOX3. ZOYA PICC INSERTED AND IN USE PER VASCULAR ACCESS TEAM. NO S/S ACUTE DISTRESS NOTED OR REPORTED AT THIS TIME. KEPT NPO FOR BRIONNA IN AM. WILL CONT TO MONITOR FOR ANY CHANGES IN CONDITION.
--- NOTE | 2019-06-09 09:10 | TEE ---
[facility] [place] [address] TRANSESOPHAGEAL ECHOCARDIOGRAM Name: JANE DEMARCO Room #: 464-P [facility] IN M.R.#: [id number] Admission: 05/30/19 Attend Phys: Paolo Jo, Discharge: Date of : 71 Date of Service: 06/09/19 0910 Report #: [id number] THIS REPORT FOR: //name// APPROVED REPORT Study performed: 06/09/2019 08:05:07 EXAM: Comprehensive 2D, Doppler, and color-flow Echocardiogram Patient Location: [facility] Room #: 464 Status: routine BSA: 2.18 HR: 96 bpm BP: 101/50 mmHg Rhythm: NSR Other Information Study Quality: Good Indications Endovascular infection. Echo Enhancing Agent Indication: Rule out Shunt Agent(s) / Amount(s) Used: Agitated Saline 6 cc Procedure After obtaining informed consent, patient underwent transesophageal echo in the [employer]. Type of Sedation : Conscious Sedation Sedation was administered by Mariana Diez RN. Sedation was achieved intravenously with: Versed (3) Fentanyl (50) Transesophageal probe was inserted and advanced into esophagus without difficulty by Pipe Green MD. The BRIONNA was performed without complications. Throughout the procedure, the blood pressure, pulse oximetry, cardiac rhythm, and rate were monitored. The patient tolerated the procedure without adverse effects. Recovery from conscious sedation was uneventful and vital signs were stable. Left Ventricle The left ventricle is normal size. There is normal LV segmental wall [facility] [address] [place] [address] TRANSESOPHAGEAL ECHOCARDIOGRAM Name: JANE DEMARCO Room #: 464-P [facility] IN M.R.#: [id number] Admission: 05/30/19 Attend Phys: Paolo Jo, Discharge: Date of : 71 Date of Service: 06/09/19 0910 Report #: [id number] motion. There is normal left ventricular wall thickness. Left ventricular systolic function is normal. LVEF is 55-60%. Right Ventricle The right ventricle is normal size. The right ventricular systolic function is normal. Atria The left atrium size is normal. No thrombus is visualized in the left atrium or appendage. No shunting noted by contrast bubble injection. The right atrium size is normal. Aortic Valve The aortic valve is normal in structure, trileaflet. No aortic regurgitation is present. There is no aortic valvular stenosis. Mitral Valve The mitral valve is normal in structure. Trace mitral regurgitation. Tricuspid Valve The tricuspid valve is normal in structure. Trace tricuspid regurgitation. Pulmonic Valve The pulmonary valve is normal in structure. There is no pulmonic valvular regurgitation. Great Vessels The aortic root is normal in size. The ascending aorta is normal in size. IVC is normal in size and collapses >50% with inspiration. Pericardium There is no pericardial effusion. <Conclusion> 1. Normal BRIONNA with Doppler <ELECTRONICALLY SIGNED> By: Pipe Green MD, FACC 06/09/19909 9 9 Pipe Green MD, FACC /INF
--- NOTE | 2019-06-09 09:18 | NUR ---
REPORT CALLED TO JHOANA ARTEAGA AT THIS TIME.
--- NOTE | 2019-06-09 09:33 | NUR ---
PT RECOVERED POST BRIONNA WITH NO C/O. VSS. RETURNED TO 464. AWAKE AND ALERT.
[2019-06-09 10:02] VITALS: BP 115/67
[2019-06-09] MEDS ORDERED: GLUCOPHAGE XR750 MG PO (16:41)
[2019-06-09] MEDS ORDERED: ERGOCALCIF50000 UNIT PO (16:42)
[2019-06-09] MEDS ORDERED: NAFCILLIN 2 GM A2 G1 IV (16:43)
--- NOTE | 2019-06-09 21:12 | NUR ---
Received awake on bed. Due medications given as prescribed. A+Ox4. On blood sugar monitoring- taken and recorded accordingly. On NPO- pt scheduled for BRIONNA today, consent signed. With PICC line at L upper arm- intact and flushing well. On O2 at 2lpm via nasal cannula. With NS at 100cc/hr infusing well thru PICC line. Pt's mother at bedside. Refused q2 turns despite explanation. Encuraged to eat and drink supplements. Assisted in ADLs. Extremities elevated on pillows, on low air loss mattress. With dressing at R BKA stump, legal contracts specialist in place, dressing C/D/I. I&D surgical site at L leg, dressing C/D/I. Pt's buttocks, cleaned with N.Saline and applied Z Guard as per wound nurse's advise, photo taken. Pt went down for BRIONNA, tolerated procedure, as per staff: normal results- Dr Jo informed. Vital signs stable. Pt blood sugar upon coming back from procedure: 49- gluco gel given as prescribed, CBG rechecked: 59, 2 orange juice given then CBG rechecked again- 53- d50 given thru IV then rechecked CBG again: 119- Dr Jo and Dr Thomas informed, asked if transfer to [facility] still to push thru, as per Dr Jo, no objection to transfer if toll collector supervisor agrees, called Dr Thomas, to repeat CBG after 1-2 hrs, if within normal range may move to rehab, modified pt's medications as well- [facility] admissions nurse informed. Repeat CBG after 2 hours: 119- Dr Jo and Dr Thomas informed. Dischage orders put in by Dr Jo, february d/c maritza prior to transfer as well- d/c as per Satish order. Pt opened bowels today. Seen by PT and transferred to chair. Discharge orders and report given to Staff Don of [facility]. Personal belongings taken with them, transferred via bed.
== END 2019-06-09 18:28 | DRG 853 ==
LOC: ER 10:41 → ICU 12:36 → EROBS 12:36 → 4W 12:36 → ICU 16:06 → 4W 06-02 06:12
PROVIDERS: Hospitalist; Internal Medicine; Orthopaedic Surgery Foot and Ankle Surgery; Physician Assistant; Specialist; ADMIT Internal Medicine
DX: A41.01 Sepsis due to Methicillin susceptible Staphylococcus aureus (principal); J86.9 Pyothorax without fistula; E43 Unspecified severe protein-calorie malnutrition; L02.611 Cutaneous abscess of right foot; M00.9 Pyogenic arthritis, unspecified; L03.115 Cellulitis of right lower limb; E87.1 Hypo-osmolality and hyponatremia; M86.8X7 Other osteomyelitis, ankle and foot; L02.413 Cutaneous abscess of right upper limb; E11.52 Type 2 diabetes mellitus with diabetic peripheral angiopathy with gangrene; R65.20 Severe sepsis without septic shock; D72.829 Elevated white blood cell count, unspecified; R00.0 Tachycardia, unspecified; E86.0 Dehydration; B96.89 Other specified bacterial agents as the cause of diseases classified elsewhere; E11.65 Type 2 diabetes mellitus with hyperglycemia; B95.61 Methicillin susceptible Staphylococcus aureus infection as the cause of diseases classified elsewhere; E11.69 Type 2 diabetes mellitus with other specified complication; E11.618 Type 2 diabetes mellitus with other diabetic arthropathy; Z60.2 Problems related to living alone; E78.5 Hyperlipidemia, unspecified; E03.9 Hypothyroidism, unspecified; E83.51 Hypocalcemia; E11.649 Type 2 diabetes mellitus with hypoglycemia without coma; E55.9 Vitamin D deficiency, unspecified; Z90.89 Acquired absence of other organs; Z68.28 Body mass index [BMI] 28.0-28.9, adult
CPT/HCPCS: 10040; 10078; 27000; 50010; 50101; 50386; 50417; 51038; 51412; 53000; 53078; 56526; 56527; 57091; 57103; 57180; 62110; 62900; 70005

== ENCOUNTER 2019-06-09 16:50 | Inpatient (IN) | payer OTHER ==
[~2019-06-09] VITALS: Ht 182.9 cm; Wt 84.6 kg
--- NOTE | ~2019-06-09 | O ---
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 PROCEDURE PERFORMED: Irrigation and debridement of right sternoclavicular joint and debridement of the clavicle, sternum and first rib. SURGEON: Chintan Jones MD ANESTHESIA: General per endotracheal tube. FLUIDS: 200 mL crystalloid. ESTIMATED BLOOD LOSS: Less than 5 mL. SPECIMENS: Sternoclavicular joint fluid for synovial fluid analysis. DESCRIPTION OF PROCEDURE: After proper identification of the patient and operative site in preoperative holding area, the operative site was signed by myself. The patient has been on prophylactic antibiotics as well as being seen by Dr. Obdulio Savage of Infectious Disease. Repeat imaging studies including CT scan and MRI have revealed persistence and progression of his prior sternoclavicular joint infection. We discussed the risks, benefits, alternatives and potential complications of this persistent infection and continued treatment. Discussed with the patient that if this persists or worsens further, we may need to involve a thoracic surgeon, if deeper dissection and resection is required in this area. Questions were encouraged, all were answered. He wished to proceed with the above. The patient was then brought back to the operative suite. After induction of satisfactory general endotracheal anesthesia, the chest was sterilely prepped and draped in the usual manner. Utilizing the previous incision, this was opened and enlarged slightly. Some sanguineous fluid that did not appear to be purulent was noted within the sternoclavicular joint. Some fibrinous tissue and debris was carefully debrided. Some remnants of the more meniscal fibrous-type disk appeared apparent. Probing of the sternum revealed some very mild softening of its articulation with the clavicle, and this area was carefully debrided with a curette and a rongeur. There was no significant softening of the more superior articulation with the first rib, and the lateral clavicle appeared to have no significant softening or involvement. All these bony areas, however, were [facility] [address] [place] [address] OPERATIVE REPORT Name: JANE DEMARCO Room #: 505-P ADM IN M.R.#: [id number] Admission: 06/09/19 Attend Phys: Andi Elise MD Discharge: Date of : 71 Report #: [id number] debrided carefully with a curette and rongeur as well as the more anterior soft tissues. The posterior structures were left intact and were not violated. There appeared to be no tracking of tissue or any soft tissue abscesses in this region. This was irrigated with antibiotic irrigant. The incision was packed with 0.25-inch iodoform gauze and closed with a 2-0 nylon. Sterile dressing was applied. He was awakened and transferred to the recovery room in stable condition. Overall, the tissues did not show any significant signs of infection or purulent-looking fluid, as I would have expected more significant changes based on his imaging study. By: [id number] Chintan Jones MD /nt
[~2019-06-09 16:50] MED LIST: ERGOCALCIF50000 UNIT PO; GLUCOPHAGE XR750 MG PO; NAFCILLIN 2 GM A2 G1 IV
[2019-06-09 18:48] VITALS: BP 148/87
--- NOTE | 2019-06-10 00:16 | NUR ---
PT ARRIVED TO UNIT APPROX 1830. PT ALERT AND ORIENTED X4, SOMEWHAT SLOW WITH RESPONSES. PT APPROPRIATE AND COOPERATIVE. PT ORIENTED TO ROOM, CALL LIGHT, BED ALARM, ETC. PT DENIES PAIN. IV TO LEFT UPPER ARM INTACT. PT UNABLE TO VOID AND STRAIGHT CATHED ORDERED. PT AWAKE NOW WATCHING TV, CALL LIGHT IN REACH. BED ALARM ON, WILL CONTINUE TO MONITOR.
[2019-06-10 06:10] LABS: HEMATOCRIT 27.9 % (42.0-52.0); HEMOGLOBIN 9.7 gm/dL (14.0-18.0); MCHC 34.7 g/dL (28.0-37.0); MCV 80.6 fL (80.0-100.0); RBC 3.47 mil/uL (4.50-6.00); RDW 13.9 % (10.5-14.5); WBC 13.9 thou/uL (4.0-11.0)
[2019-06-10 06:21] LABS: CALCIUM 7.5 mg/dL (8.5-10.1); CREATININE 0.6 mg/dL (0.7-1.3)
[2019-06-10 06:28] LABS: POTASSIUM 2.6 mmol/L (3.5-5.1)
[2019-06-10 07:30] VITALS: BP 136/83
--- NOTE | 2019-06-10 08:14 | NUR ---
chart review, pt up in bed, a & o x 3, able to make his needs know, quiet with little eye contacted. intro to cm, transition of care and team meeting. per pt and chart " live home with mom 8 steps. independent prior to hospital. no dme, no past hh or rehab, no primary care physician. will cont following as needed for dc needs.
--- NOTE | 2019-06-10 09:56 | NUR ---
ASSUMED CARE AT 0700. PATIENT IS ALERT AND ORIENTED, BUT IS SLOW TO RESPOND. PATIENT MOVES UPPER EXRREMITIES WITHOUT PROBLEMS. LEFT KNEE IS PAINFUL, AND PATIENT HAS RIGHT BKA WITH STUMP CREDIT REVIEW OFFICER. LUNGS ARE CLEAR. ABD IS SOFT WITH BSX4. PATIENT HAD EPISODE OF EMESIS AT BREAKFAST. IV POTASSIUM, AND ABT INFUSED VIA LEFT UPPER ARM PICC LINE. REPEAT LAB DRAWN BY THIS INTERLOCKING MACHINE OPERATOR AND TAKEN TO THE LAB. FALL AND SAFETY PROTOCOLS IN PLACE. C/O LEFT KNEE PAIN. MEDICATED WITH PRN PAIN MED. CONTINUES TO PROGESS VERY SLOWLY TOWARDS D/C GOALS. WILL CONTINUE TO MONITER.
[2019-06-10 15:29] LABS: MAGNESIUM 1.7 mg/dL (1.8-2.4)
[2019-06-10 19:30] VITALS: BP 130/80
--- NOTE | 2019-06-11 02:28 | NUR ---
assumed care at approx 1900 evening 06/10. pt lying in bed with head of bed elevated. pt appropriate and cooperative. pt voiding per urinal. pt also incontinent of large bm this evening requiring assistance with changing. cream applied to buttocks as ordered and assist with turning q2. pt appears to be sleeping soundly with hourly rounding checks. bed alarm on and call light in reach. will continue to monitor.
[2019-06-11 07:25] VITALS: BP 123/66
--- NOTE | 2019-06-11 08:08 | HC ---
[facility] [place] [address] CONSULTATION Name: JANE DEMARCO Room #: 503-P ADM IN M.R.#: [id number] Admission: 06/09/19 Attend Phys: Andi Elise MD Discharge: Date of : 71 Report #: [id number] THIS REPORT FOR: //name// CC: Andi Elise FAM physician/PCP DATE OF SERVICE: 06/10/2019 ENDOCRINE CONSULTATION CONSULTING PHYSICIAN: Dr. Andi Elise. REASON FOR CONSULTATION: Uncontrolled type 2 diabetes mellitus. HISTORY OF PRESENT ILLNESS: This is a 43-year-old male patient whose medical background was fairly unremarkable until his earlier admission to [facility] in the context of severe lower extremity pain and diabetic foot wound. In that context, the patient was found out to have type 2 diabetes mellitus for the first time without a prior formal diagnosis of that. His blood glucose values were initially in the 500 mg/dL range, which prompted the use of intravenous insulin. The patient stabilized soon thereafter and was transitioned to a combination of Lantus insulin, Glucophage and Tradjenta. However, he developed recurrent hypoglycemia, which culminated in the discontinuation of Lantus and Tradjenta and he is currently on Glucophage monotherapy. Also, the patient was found to have hypocalcemia and upon further investigation was found to have severe vitamin D deficiency at 10 and was started on high dose vitamin D therapy subsequently. Unfortunately, the patient had to undergo a right below knee amputation given the above noted course and was admitted yesterday to the rehab unit for rehabilitative efforts. REVIEW OF SYSTEMS: CONSTITUTIONAL: Fatigue, tiredness, but no fever or chills. PULMONARY: No shortness of breath, cough or hemoptysis. CARDIAC: No chest pain, palpitations, syncope or presyncope. GASTROINTESTINAL: No abdominal pain, nausea, vomiting or changes in bowel movement frequency. NEUROLOGY: Negative for loss of consciousness, seizures. SKIN: Negative for rash, itching, ulceration. PSYCH: Depressed mood, but no hallucinations. The rest of his review of systems noncontributory other than those mentioned in HPI. PAST MEDICAL HISTORY: 1. Type 2 diabetes mellitus, new diagnosis. [facility] [address] [place] [address] CONSULTATION Name: JANE DEMARCO Room #: 503-P [facility] IN M.R.#: [id number] Admission: 06/09/19 Attend Phys: Andi Elise MD Discharge: Date of : 71 Report #: [id number] 2. Peripheral vascular disease, status post recent right below knee amputation. 3. Septic left knee. 4. Hypocalcemia. 5. Vitamin D deficiency. 6. Obesity. PAST SURGICAL HISTORY: Recent right BKA as noted above. FAMILY HISTORY: Noncontributory. SOCIAL HISTORY: The patient lives with his mother. He is unemployed. Denies use of tobacco or illicit drugs. PHYSICAL EXAMINATION: GENERAL: This is a male patient who is not in apparent distress, but appears withdrawn and is not engaged during our discussion. VITAL SIGNS: Blood pressure is 148/87 mmHg, heart rate is 98 beats per minute, respirations 22 per minute, temperature 98.2 degrees. HEENT: Anicteric sclerae. Intact extraocular motions. NECK: Supple, without JVD, carotid bruits or lymphadenopathy. I do not appreciate thyromegaly. CHEST: Clear to auscultation with good air entry bilaterally. No wheezes or crackles. HEART: Regular rate and rhythm without murmurs or gallops. ABDOMEN: Soft and lax without tenderness or organomegaly, has active bowel sounds. EXTREMITIES: Lower extremity exam, he is status post right BKA. No left lower extremity edema. NEUROLOGIC: Awake, alert and oriented to time, place and person. The remainder of his examination is nonfocal. PSYCH: Flat mood and affect, minimally interactive, does not engage in eye contact, appears to have a depressed mood. SKIN: No rash, ulcerations, or discoloration. LABORATORY RESULTS: Blood glucose values over the past 24 hours have run from 119-134 mg/Dl. Earlier yesterday he had blood glucose as low as 49 mg/dL, necessitating the use of dextrose. Otherwise, sodium 137, potassium 2.6, chloride 102, carbon dioxide 30, BUN 3, creatinine 0.6, GFR 146. Hemoglobin 9.7, white blood count 13.9, hematocrit 27.9, platelets 469. Hemoglobin A1c 12.6. ASSESSMENT AND PLAN: 1. Type 2 diabetes mellitus. New diagnosis, however, judging by the complicated picture that the patient presented with this must have gone on for quite some time before diagnosis. As noted above, the patient's level of severe hyperglycemia warranted the use of IV insulin to which he responded well, since [address] [address] CONSULTATION Name: JANE DEMARCO Room #: 503-P ADM IN M.R.#: [id number] Admission: 06/09/19 Attend Phys: Andi Elise MD Discharge: Date of : 71 Report #: [id number] then, he has done well on a combination of long-acting insulin and oral agents, but has recently exhibited recurrent hypoglycemia. I discontinued Lantus insulin completely 2 days ago and then discontinued Tradjenta yesterday and he is currently on Glucophage monotherapy. I will maintain the current regimen as we continue to monitor his blood glucose values a.c. and at bedtime and adjust his regimen as needed. I encouraged the patient to advance his p.o. intake, which has been minimal over the past several days. 2. Hypocalcemia. The patient was noted as having persistent hypocalcemia and on further investigation was found to have severe vitamin D deficiency at 10. Subsequently, vitamin D therapy was started. 3. Vitamin D deficiency as noted above, this is severe 10 and the patient was started on high dose vitamin D therapy at 50,000 units weekly. This is to continue for 3 months. Long-term followup will be needed. I certainly appreciate this consultation by Dr. Elise. <ELECTRONICALLY SIGNED> By: Khari Alvarado MD 06/11/19 [id number] Khari Alvarado MD /nt
--- NOTE | 2019-06-11 18:23 | NUR ---
ASSUMED CARE OF PT AT APPROX 0700. PT IS ALERT AND ORIENTED X4. FLAT, AND SOMETIMES WILL NOT SPEAK WHEN ASKED QUESTIONS. DENIES PAIN AND SOA. EVEN NONLABORED BREATHING. ASSESSMENT CHARTED. PT DOES COMPLAIN OF N/V. PT BEGAN VOMITING, ADMINISTERED ZOFRAN WITH PARTIAL RELIEF. PT NOT EATING TODAY AND REQUESTED TO DO DRESSING CHANGES LATER TONIGHT IF FEELING BETTER. TURNING AND APPLYING BARRIER CREAM ALLOWED BY PT. DENIES FURTHER CONCERNS OR COMPLAINTS AT THIS TIME.
[2019-06-11 20:16] VITALS: BP 126/64
--- NOTE | 2019-06-12 02:57 | NUR ---
Assumed pt care at 1900.A/OX4 with a flat affect. Will only answer questions sometimes. Denies pain on assessment.VSS.Pt c/o nausea w/o emesis before HS,order obtained for Compazine IV administred with positive results. Pt incontinent of B&B beginning of shift but has been using the urinal since then. Wound care completed before HS without problems. PICC line patent on LUE. Resting quietly with no distress at this time.will continue to monitor pt.
[2019-06-12 05:22] LABS: CALCIUM 7.7 mg/dL (8.5-10.1); CREATININE 0.4 mg/dL (0.7-1.3); MAGNESIUM 1.4 mg/dL (1.8-2.4)
[2019-06-12 05:26] LABS: POTASSIUM 2.4 mmol/L (3.5-5.1)
[2019-06-12 05:28] LABS: ABSOLUTE NEUTROPHILS 7.8 thou/uL (1.4-8.2); BASOPHILS 0.6 % (0.0-2.0); EOSINOPHILS 2.2 % (0.0-3.0); HEMATOCRIT 25.8 % (42.0-52.0); HEMOGLOBIN 9.1 gm/dL (14.0-18.0); LYMPHOCYTES 17.2 % (24.0-44.0); MCH 28.2 pg (26.0-34.0); MCHC 35.1 g/dL (28.0-37.0); MCV 80.3 fL (80.0-100.0); PLATELET COUNT 460 thou/uL (150-400); RBC 3.21 mil/uL (4.50-6.00); RDW 14.7 % (10.5-14.5); WBC 10.4 thou/uL (4.0-11.0)
[2019-06-12 07:30] VITALS: BP 135/79
[2019-06-12 13:10] VITALS: BP 140/48
[2019-06-12 19:24] VITALS: BP 126/68
--- NOTE | 2019-06-12 20:40 | NUR ---
ASSUMED CARE OF PT AT 0715. PT IS A&OX4, AFFECT IS FLAT, VITAL SIGNS ARE STABLE. IV POTASSIUM STARTED THIS MORNING, ORDERS CHANGED TO PO POTASSIUM, BUT PT WAS UNABLE TO TOLERATE PO AND WAS CHANGED BACK TO IV POTASSIUM. IV MAGNESIUM STARTED AND IV ANTIBIOTICS CONTINUED. SINGLE LUMEN PICC LINE TO LEFT UPPER ARM FLUSES APPROPRIATELY, W/O REDNESS, WARMTH, OR DRAINAGE, DRESSING C/D/I. ACCU CHECKS ACHS AND MANAGED WITH PO MEDICAITONS. RIGHT BKA SURGICAL SITE WITH QUITA IS WELL APPROXIMATED AND W/O DRAINAGE, DRESSING CHANGED AND IN PLACE. URINE REPORTED TO BE TEA COLORED, BUT PT DRAINED URINAL PRIOR TO THIS NURSE BEING ABLE TO SEE URINE. PT CUED TO TURN OR REPOSITION EVERY 2 HOURS. MOTHER AT BEDSIDE FOR ENTIRE SHIFT. FALL PRECAUTIONS IN PLACE AND NURSING WILL CONTINUE TO MONITOR.
--- NOTE | 2019-06-13 03:23 | NUR ---
assumed care at approx 1900 evening 06/12. pt lying in bed with head of bed elevated dozing off and on. pt denies n/v. pt voiding per urinal and also incontinent of small amt bm tonight. assisted with changing, turning, and applied creams as ordered. pt appears to be sleeping off and on with hourly rounding checks. bed alarm on and call light in reach. will continue to monitor.
[2019-06-13 05:14] LABS: CALCIUM 7.4 mg/dL (8.5-10.1); CREATININE 0.5 mg/dL (0.7-1.3); MAGNESIUM 1.6 mg/dL (1.8-2.4)
[2019-06-13 08:00] VITALS: BP 136/89
[2019-06-13 13:15] VITALS: BP 140/95
[2019-06-13 19:30] VITALS: BP 150/88
--- NOTE | 2019-06-13 20:29 | NUR ---
ASSUMED CARE OF PT AT 0715. PT IS A&OX4 AND VITAL SIGNS ARE STABLE. PT HAS FLAT AFFECT AND REQUIRES STAFF TO ASK DIRECT QUESTIONS ABOUT IS NEEDS AND HEALTH. PT HAD MODERATE DRAINAGE FROM RIGHT SUBCLAVIAN I&D SITE EARLY THIS SHIFT, SITE CLEANED AND OPTIFOAM DRESSING PLACED. DR. LONG NOTIFIED AND INSTRUCTIONS TO KEEP SITE CLEAN AND COVER WITH OPTIFOAM AND HE WILL F/U IN MORNING. CALL BACK IF BG ELEVATES OR PT BECOMES SYMPTOMATIC OF INFECTION. RECHECKED SITE AT CHANGE OF SHIFT AND NO FURTHER DRAINAGE WAS NOTED, PT REPORTS TENDERNESS AND HAS SOME REDNESS AND EDEMA TO THE AREA CONSISTANT WITH PRIOR ASSESSMENTS BY THIS NURSE. PT AT SHIFT CHANGE WAS BLADDER SCANNED AND HAD >900ML URINARY RETENTION. PT VOIDED 250 OF DARK YELLOW URINE PER URINAL AFTER SCAN. NURSE RESCANNED AND PT CONTINUED TO HAVE >900ML PER SCANNER. PT BECAME AGITATED WHEN TOLD THAT NURSING WOULD NEED TO INSERT STRAIGHT CATHETER, NURSE ASKED PT TO TRY ONCE AGAIN TO VOID, PT THEN VOIDED FURTHER 700ML OF DARK YELLOW URINE. BLADDER SCAN INDICATED <100ML OF URINE FOLLOWING FINAL VOID. PT HAS SINGLE LUMEN PICC TO LUE PATENT, W/O REDNESS, EDEMA, OR DRAINAGE, DRESSING C/D/I. REPORTED NAUSEA AT APPROXIMATELY 1500, BUT REFUSED MEDICAITON. ACCU CHECKS ACHS AND MANAGED WITH PO MEDICATIONS WHICH PT REFUSED BECAUSE HE STATED "THOSE MAKE ME FEEL SICK". IV MAGNESIUM GIVEN THIS SHIFT PER ORDERS, ABOUT 3/4 THROUGH THE INFUSION PT REPORTED HAVING A METALLIC TASTE WHEN ASKED WHY HE DID NOT EAT LUNCH. PT WAS ALSO NOTED TO HAVE FLUSHED APPEARANCE AND INFUSION WAS IMMEDIATELY STOPPED AND DR. QUIROZ NOTIFIED. NURSE INSTRUCTED TO CONTINUE INFUSION. PT CONTINUED TO REPORT METALLIC TASTE TO NURSE AND MOTHER REPORTED THAT THIS HAD BEEN AN ISSUE PRIOR TO ENTERING THE HOSPITAL. PT DENIED PAIN, PARTICIPATED IN SCHEDULED THERAPIES. FALL PRECAUTIONS IN PLACE AND NURSING WILL CONTINUE TO MONITOR.
--- NOTE | 2019-06-14 01:26 | NUR ---
PATIENT ASSESSED AND IS ALERT X 4. SKIN WARM AND DRY. RESP EVEN AND UN LABORED. TURNS SELF WITH ASSISTANCE BUT CAN DO HIMSELF MOST OF THE TIME. WAS INCONT OF URINE AND BM ON ARRIVAL TO FLOOR. HAS A RIGHT BKA. WITH THE DRESSSING IN PLACE. LEFT PICC INTACT AND FLUSHES WELL. LUNGS CTA. NO EDEMA NOTED TO LOWER EXTREMITIES. WOUNDS INTACT WITH DRESSING ON THEM. CREAM APPLIED TO HIS RASH AT HS. NO ITCHING NOTED.TAKING DIET WELL.ON BEDREST. REFUSED TO TURNED MOST OF THE NIGHT. IV FLUIDS AND ANTIBIOTICS CONTINUE. VOIDS PER URINAL. WILL MONITOR URINE OUTPUT. HAD SOME DIFFICULTY TODAY. RIGHT SUCLAVIAN SITE HAS DRAINAGE NOTED. NEW DRESSING APPLIED. CONT PLAN OF CARE. LEFT PICC PATENT. FLUSHES WELL.
[2019-06-14 08:00] VITALS: BP 135/85
--- NOTE | 2019-06-14 11:23 | NUR ---
ASSUMED CARE AT 0700, SHIFT ASSESSMENT DONE, VSS. DENIES PAIN, NAUSEA, VOMITING. WOUND CARE TO THE RIGHT STUMP DONE. ON IV ANTIBIOTICS, WILL CONTINUE TO ASSESS AND ASSIST WITH ADLs NEEDED.
--- NOTE | 2019-06-14 13:42 | NUR ---
ASSUMED CARE MID SHIFT, REC REPORT, INTRO'D SELF TO PT'S. PT GRIMACING W/PAIN, TAKES ALEVE AT HOME, HAS TYLENOL HERE, ADM LATER WITH GOOD EFFECT. MOM HAS TENDENCY TO ANSWER HIS QUESTIONS SO GENTLY REMINDED HER WE'D LOVE HER CONTRIBUTION YET NEEDEED LEENA TO SPEAK FIRST. TERRIFIC SUPPORT, OFFERED HER SNACKS/DRINKS WELL PT. W/C BOUND, WOUND CARE DONE PRIOR SAVE FOR SACRUM WHICH WILL BE COMPLETED BEFORE END OF SHIFT. PT OUT IN DINING AREA WATCHING MOVIE, TALKATIVE. A&0X4, ENCOURAGED TO USE CALL LIGHT/FIELDS FOR ANY NEEDS
--- NOTE | 2019-06-14 18:06 | NUR ---
AT APPROX 1705, SILVADENE CREAM USED W/ADELAIDE ON SACRUM, PT IS HESITATNT TO HIS CARES
--- NOTE | 2019-06-14 18:35 | NUR ---
STAFF SHARED THAT PT'S HAD A HX OF BEING BLADDER SCANNED FREQUENTLY IN EVENING AND RETAINING URINE >900. BVI'D AND HE'S AT >1000ML. GAVE HIM TWO URINALS AFTER EXPLAINING PROBABLY NEXT STEP. HE STATES HE THINKS HE CAN URINATE. CONTACTED DR. QUIROZ TO SHARE PARRA HX WELL CURRENT SITUATION. AWAITING ORDERS
[2019-06-14 19:40] VITALS: BP 138/80
--- NOTE | 2019-06-15 04:22 | NUR ---
ASSUMED PT CARE AROUND 1900. A&OX4. PT IS IRRITABLE AT TIMES. FLAT AFFECT. C/O LEFT KNEE PAIN. PT SLEPT PART OF THE NIGHT. RESP EVEN AND UNLABORED. PT HAS URINARY RETENTION. REFUSED TO HAVE PARRA PLACED WAS ORDERED. EDUCATION PROVIDED ON REASONS FOR NEEDED PARRA. PT WAS ABLE TO VOID PER URINAL. WILL CONTINUE TO MONITOR RETENTION ISSUE. AFEBRILE. VSS. PROGRESSING SLOWLY TOWARD POC GOALS. WILL CONTINUE TO MONITOR FURTHER.
[2019-06-15 06:05] LABS: HEMATOCRIT 25.8 % (42.0-52.0); HEMOGLOBIN 9.1 gm/dL (14.0-18.0); MCHC 35.1 g/dL (28.0-37.0); MCV 79.9 fL (80.0-100.0); RBC 3.24 mil/uL (4.50-6.00); RDW 14.5 % (10.5-14.5); WBC 8.4 thou/uL (4.0-11.0)
--- NOTE | 2019-06-15 06:11 | NUR ---
PT WAS ABLE TO VOID OVER 1000ML DURING THE NIGHT. PT VOIDED ANOTHER 200ML THIS MORNING. PVR 445ML. PT STILL REFUSING PARRA PLACEMENT THAT WAS ORDERED BY PHYSICIAN FOR RETENTION. PT IS A&OX4 AND UNDERSTANDS HIS DECISION. WILL UPDATED ONCOMING NURSE.
[2019-06-15 06:13] LABS: CALCIUM 7.6 mg/dL (8.5-10.1); CREATININE 0.4 mg/dL (0.7-1.3); MAGNESIUM 1.6 mg/dL (1.8-2.4)
[2019-06-15 06:15] LABS: POTASSIUM 2.7 mmol/L (3.5-5.1)
[2019-06-15 07:35] VITALS: BP 139/88
[2019-06-15 19:25] VITALS: BP 126/73
--- NOTE | 2019-06-15 20:12 | NUR ---
ASSUMED CARE OF PT AT 0715. RECEIVED REPORT FROM NIGHT NURSE PT HAS URINARY RETENTION, STARTED ON FLOMAX BUT REFUSED PARRA OR STRAIGHT CATH. PT IS A&OX4 AND VITAL SIGNS ARE STABLE. OT GAVE PT SHOWER AND PT UP WORKED WITH THERAPISTS TODAY. PT HAS FLAT AFFECT AND REQUIRES STAFF TO ASK DIRECT QUESTIONS ABOUT IS NEEDS AND HEALTH. R BKA DRESSING CHANGED. HAD SOME BLEEDING. JAGUAR USES PRESSURE TO STOP BLEEDING. PT HAD MODERATE DRAINAGE FROM RIGHT SUBCLAVIAN I&D SITE EARLY THIS SHIFT, SITE CLEANED AND OPTIFOAM DRESSING PLACED. DR. LONG CONTINUE TO FOLLOW UP WITH PT'S INFECTION. BS MONITOR ACHS.NO INSULIN GIVEN. PT HAS POOR APPETITE. HAD LARGE LOOSE BM D/T ON ABT IV. AND ONE VOMIT EPISODE AT DINNER TIME. ASSISTED WITH CLEAN UP. DENIES NEED FOR ZOFRAN. PT REPORTS URINATED TWICE. BLADDER SCAN HAD 730CC REMAINED .NOTIFIED ROSSY THAT PT REFUSED STRAIGHT CATH, SHE SAID SHE WILL INCREASE FLOMAX BID. OFFERED SUPPORTIVE CARE. PT UP TO DINNING ROOM FOR BREAKFAST AND LUNCH. MOTHER WAS WITH PT THIS AFTERNOON.ENCOURAGED PT TO URINATE. PT ABLE TO URINATE 625CC URINE THE END OF THE SHIFT. GAVE REPORT TO NIGHT NURSE TO CONTINUE TO MONITOR.
--- NOTE | 2019-06-16 04:24 | NUR ---
PATIENT ALERT AND ORIENTED X4. DRESSING ON R STUMP D/I. CREAM PUT ON COCCYX WOUND. RASH ON ABD, CREAM APPLIED, PT DENIES ITCHING OF RASH. VOIDED 600 SO FAR THIS SHIFT. ACCUCHECK WAS 128. NO INSULIN COVERAGE. PICC LINE PATENT. DENIES PAIN. SLEPT MOST OF NIGHT.
[2019-06-16 07:46] LABS: CALCIUM 7.5 mg/dL (8.5-10.1); CREATININE 0.5 mg/dL (0.7-1.3); MAGNESIUM 1.5 mg/dL (1.8-2.4)
--- NOTE | 2019-06-16 07:46 | NUR ---
ASSUME PT CARE AT 0700. REPORTS HAVING TROUBLE OF SLEEPING. PT JUST VOMITTED NOW WITH FOOD FROM LAST NIGHT. PRN ZOFAN GIVEN. C/O RIGHT SHOULDER PAIN ESPECIALLY WHEN HE RAISES IT UP. PRN TYLNOL GIVEN. BS HAS BEEN STABLE WITHOUT INSULIN. WILL DISCUSS WITH ROSSY ABOUT PT'S ISSUES AND CONCERNS AND WILL TRY TO OBTAIN ORDER FOR PT'S NEEDS. OFFERED SUPPORTIVE CARE. PT STILL HAS FLAT AFFECT. WILL CONTINUE TO MONITOR AND OFFER SUPPORT.
[2019-06-16 07:53] LABS: POTASSIUM 2.6 mmol/L (3.5-5.1)
[2019-06-16 10:21] VITALS: BP 123/75
--- NOTE | 2019-06-16 12:09 | H ---
[facility] [place] [address] HISTORY AND PHYSICAL Name: JANE DEMARCO Room #: 503-P ADM IN M.R.#: [id number] Admission: 06/09/19 Attend Phys: Andi Elise MD Discharge: Date of : 71 Report #: [id number] THIS REPORT FOR: //name// CC: Andi Elise [facility] physician/PCP DATE OF SERVICE: 06/09/2019 HISTORY OF PRESENT ILLNESS: The patient is a 43-year-old white male who was noted to not have seen by a medical provider for 25 years, presented to the hospital with right foot pain, swelling, redness, diagnosed with a right septic foot with cellulitis. He also had a left knee septic arthritis and underwent a left knee I and D. He required a right knee amputation done on 05/31/2019. He has been followed by Surgery and Infectious Disease, hospitalist service. He has been placed on IV antibiotics. He was found to have a right subclavian abscess/septic arthritis and underwent I and D of the abscess on 06/03/2019. He has a new diagnosis of diabetes with an admission blood sugar greater than 500 and was found to have a hemoglobin A1c of 11.7. He is noted to have significant functional mobility and ADL deficits and has been admitted for acute in-hospital inpatient rehabilitation. PAST MEDICAL HISTORY: Includes the above. HABITS: No history of tobacco abuse. MEDICATIONS: Please see the full medication listing. ALLERGIES: No known drug allergies. SOCIAL HISTORY: The patient lives in a duplex with his mother, 8 steps to enter, then all living on one level. He was independent with ADLs. Mother provided the IADLs. He does not drive. He does not work. Mother apparently works. He did not utilize any assistive device prior. REVIEW OF SYSTEMS: No current complaints of chest pain, shortness of breath, abdominal discomfort. PHYSICAL EXAMINATION: GENERAL: A 43-year-old overweight white male in no obvious distress. VITAL SIGNS: Temperature 98.2, pulse 98, respirations 22, blood pressure 148/87. NEUROLOGIC: The patient is alert, follows basic commands. Facies are symmetric. Right anterior chest area is dressed. CHEST: Sounded clear to auscultation. CARDIOVASCULAR: Regular rate and rhythm. ABDOMEN: Obese, bowel sounds positive, nontender. [facility] [address] [place] [address] HISTORY AND PHYSICAL Name: JANE DEMARCO Room #: [address] [place] [address] IN M.R.#: [id number] Admission: 06/09/19 Attend Phys: Andi Elise MD Discharge: Date of : 71 Report #: [id number] GENITOURINARY AND RECTAL: Deferred. EXTREMITIES: He favors movement of that right upper extremity with some discomfort of the right anterior chest area. Would grade his strength probably at least a grade 4-/5, left upper extremity is probably more of a grade 4 to 4-/5. Left lower extremity has the pablo in place over the knee, which underwent the drainage. He has some discomfort with movement. There is no focal calf swelling. He does have decreased sensation in a stocking distribution of that left lower extremity with some decreased proprioception large toe. Strength of the left lower extremity is probably a grade 3+ to 4-/5. It is somewhat difficult to assess with some of the discomfort he is having from the knee. Right lower extremity includes the right below knee amputation, which is dressed. He has some discomfort moving the right lower extremity. ASSESSMENT: 1. Right lower extremity osteomyelitis with septic joint, status post right below-knee amputation on 05/31/2019. 2. Left septic arthritis, status post incision and drainage. 3. Right subclavian and septic joint/abscess status post incision and drainage. 4. New diagnosis of diabetes, poorly controlled. Hemoglobin A1c 11.7. 5. Exogenous obesity. 6. Protein-calorie malnutrition. 7. Significant functional mobility and activities of daily living deficits. 8. Polyarthropathy. 9. Sepsis. 10. Staphylococcus aureus bacteremia endovascular infection with multiple septic joints. PLAN: The patient has been admitted for acute in-hospital inpatient rehabilitation. From a postadmission physician evaluation, there are no relevant changes since the preadmission screening. Please see the above review of prior and current medical and functional conditions and comorbidities. Please see the previous and current functional status. As far as risk of complications, the patient has multiple medical comorbidities as noted above. Initial plan of care involves the interdisciplinary acute inpatient rehabilitation program with the goal of maximizing his functional independence he can hopefully return back to his prior living situation. Measurable functional goals would be for the patient to become modified independent with basic transfers, mobility and ADLs, so he can return back to the home setting. We will be having speech therapy assess regarding cognition and communication as well. Prognosis is reasonably good with estimated length of stay probably at least 10 days to 2 weeks and likely longer as warranted. Potential barriers would include his multiple medical comorbidities and decreased functional status. <ELECTRONICALLY SIGNED> By: Andi Elise MD 06/16/19 [id number] Andi Elise MD /nt
--- NOTE | 2019-06-16 12:49 | NUR ---
team meeting, recommendation: have 8 + 8 steps to get up to his room. possible change room to main level of home. therapy looking into juan carlos wheel chair. pt mom to look into ramp and stair lift. pt has low k+ today 2.6, pt cont on iv abx. bladder scan rt retention, was started on po flomax. re team, benefit from written information.
[2019-06-16 19:23] VITALS: BP 128/68
--- NOTE | 2019-06-17 05:07 | NUR ---
ASSESSMENT: PT REMAIN ALERT AND ORIENT TIMES THREE. SLOW TO RESPOND TO QUESTIONS. BLURTS OUT NEEDS QUITE RUDELY AT TIMES. PT REMINDED THAT HE NEEDS TO URINATE. PT VOIDED PER URINAL WITHOUT DIFFICULTY. PT ABLE TO ASSIST WITH TURNS. VSS, AFEBRILE. IV ACCESSES PATENT. NO BM THIS SHIFT. SLOW PROGRESS TOWARDS DC GOALS. WILL CONTINUE TO MONITOR.
[2019-06-17 07:00] VITALS: BP 107/55
[2019-06-17 09:51] LABS: CALCIUM 7.8 mg/dL (8.5-10.1); CREATININE 0.5 mg/dL (0.7-1.3); POTASSIUM 3.7 mmol/L (3.5-5.1)
--- NOTE | 2019-06-17 12:36 | NUR ---
ASSUME PT CARE AT 0700. VSS ON RA. REPORTS SLEEPING BETTER, STARTED ON MELATONIN LAST NIGHT. HAS RIGHT SHOULDER PAIN 6/10. PRN TRAMADOL GIVEN AND IT WENT DOWN TO 3/10. STILL HAS SMALL AMOUNT OF YELLOW DRAINAGE ON RIGHT SHOULDER INCISION. WOUND NURSE CAME TO SEE PT AND ORDER AND CHANGED DRESSING TODAY. RIGHT BKA INCISION HEALING WELL. DRESSING CHANGED. BUTTOCK LOOKS BETTER, ENCOURAGED PT TO TURN. CONTINUE TO BE ON ABT FOR R BKA INFECTION. IV ABT AND MORNING MEDS GIVEN. REFUSED POTASSIUM, LABS SANJU FROM LEFT UPPER ARM PICC. K 3.7 NOW. NOTICED NEW ORDER FOR REMERON. PT HAS FLAT AFFECT. REPORT URINATE OK. OFFERED SUPPORTIVE CARE. LABS REVIEWED. PT STILL HAS FLAT AFFECT. FALL PRECAUTION IN PLACE. CALL LIGHT WITHIN REACH. MOTHER AT BEDSIDE.WILL CONTINUE TO MONITOR.
[2019-06-17 19:02] VITALS: BP 134/76
--- NOTE | 2019-06-18 05:45 | NUR ---
PT DENIES NEED FOR PAIN MEDS ALL THROUGH THE NIGHT. ALERT AND ORIENTED.COOPERATIVE BUT JUST WITHDRAWN.WAS ABLE TO USE URINAL WITH GOOD OUTPUT.PT ENC TO DRINK. VSS.CONTINUES ON IV ABTS. LLE AND R STUMP ELEVATED ON PILLOWS. AFEBRILE.REPOSITIONING ENCOURAGED AND PROVIDED.CREAMS APPLIED TO BOTTOM.ROOM AIR-LITTLE BIT OF COUGH, ENCOURAGED TO USE I/S W/A.PT REPORTS HE RESTED FAIRLY WELL THROUGH THE NIGHT.
[2019-06-18 07:40] VITALS: BP 139/83
--- NOTE | 2019-06-18 11:32 | NUR ---
ASSUMED CARE AT 0700. PATIENT IS ALERT AND ORIENTED X4. FLAT AFFECT. PATIENT HAS RIGHT BKA, AND QUITA TO HIS LEFT KNEE. PATIENT HAS STUMP POLICE SUPERINTENDENT ON HIS RIGHT STUMP. PATIENT HAS LEFT UPPER ARM MIDLINE. IV SITE WITHUOT REDNESS OR SWELLING. PATIENT HAS RIGHT ARM S.L. IV SITE WITHOUT REDNESS OR SWELLING STUMP INCISION DRY AND INTACT. PATIENT HAS TO BE ENCOURAGED TO USE HIS URINAL. MOM HERE TO VISIT. FALL AND SAFETY PROTOCOLS IN PLACE. DENIES PAIN AT THIS TIME. MOM AT BEDSIDE. WILL CONTINUE TO MONITER.
--- NOTE | 2019-06-18 15:20 | NUR ---
cm checked with [facility] rt stated of medicaid teresita. " [place] and [place]"/[facility].
[2019-06-18 21:00] VITALS: BP 145/92
--- NOTE | 2019-06-19 03:49 | NUR ---
ASSESSMENT: PT REMAIN ALERT AND ORIENT. SLEPT MOST OF THE NIGHT. VSS, AFEBRILE. DENIES PAIN. TOLERATING PO INTAKE, NO EMEMSIS. LEFT UA PICC PATENT AND INTACT. REFUSES TURNS MOST TIMES. FLAT AFFECT. SLOW PROGRESS TOWARDS DC GOALS, WILL CONTINUE TO MONITOR.
[2019-06-19 07:30] VITALS: BP 127/79
[2019-06-19 08:13] LABS: ABSOLUTE NEUTROPHILS 5.4 thou/uL (1.4-8.2); BASOPHILS 1.2 % (0.0-2.0); EOSINOPHILS 5.8 % (0.0-3.0); HEMATOCRIT 25.8 % (42.0-52.0); HEMOGLOBIN 8.7 gm/dL (14.0-18.0); LYMPHOCYTES 21.7 % (24.0-44.0); MCH 27.9 pg (26.0-34.0); MCHC 33.9 g/dL (28.0-37.0); MCV 82.2 fL (80.0-100.0); MONOCYTES 6.5 % (1.0-8.0); PLATELET COUNT 520 thou/uL (150-400); POLYS 64.8 % (36.0-66.0); RBC 3.14 mil/uL (4.50-6.00); WBC 8.4 thou/uL (4.0-11.0)
[2019-06-19 08:27] LABS: CALCIUM 7.8 mg/dL (8.5-10.1); CREATININE 0.6 mg/dL (0.7-1.3); MAGNESIUM 1.8 mg/dL (1.8-2.4); POTASSIUM 3.3 mmol/L (3.5-5.1)
--- NOTE | 2019-06-19 11:02 | PLAN ---
[facility] [place] [address] REHAB UNIT PLAN OF CARE Name: JANE DEMARCO Room #: 503-P ADM IN M.R.#: [id number] Admission: 06/09/19 Attend Phys: Andi Elise MD Discharge: Date of : 71 Report #: [id number] THIS REPORT FOR: //name// CC: Andi Elise [facility] physician/PCP DATE OF SERVICE: 06/12/2019 PROGRESS NOTE AND OVERALL PLAN OF CARE SUBJECTIVE: The patient seen back today in followup. He is in no distress. Last recorded temperature 98.7, pulse 96, respirations 18, blood pressure 126/64. The patient is alert. He has the stump agricultural produce packer in place. Bno-mq-vuwlw transfers are max assist, wkw-pm-yunfpmdiua are min assist. He has the pablo in place. Left knee with no noted erythema. He needs standby assistance with placement of sliding board. He was able to achieve some basic slide board transfers with min assist. In speech therapy, he does have severe cognitive deficits and severe memory deficits. Transfers, cgzxan-pl-ozm are min assist. ASSESSMENT: 1. Right lower extremity osteomyelitis with septic joint, status post right below-knee amputation on 05/31/2019. 2. Left septic arthritis, status post incision and drainage. 3. Right subclavian and septic joint abscess, status post incision and drainage. 4. New diagnosis of diabetes. 5. Exogenous obesity. 6. Protein-calorie malnutrition. 7. Functional mobility and ADL deficits. 8. Polyarthropathy. 9. Sepsis. 10. Staphylococcus aureus bacteremia with endovascular infection with multiple septic joints. PLAN: The overall plan of care is based on the preadmission screen, post-admission physician evaluation and information garnered from therapy assessments. 1. Estimated length of stay is probably at least 10 days to 2 weeks and likely longer. 2. Medical prognosis is reasonably good. 3. Anticipated interventions includes the interdisciplinary acute inpatient rehabilitation program. 4. Anticipated functional outcomes would be for the patient to become modified independent with transfers, mobility and ADLs as well as cognitive communication issues that he can return back to the home setting. [address] [address] REHAB UNIT PLAN OF CARE Name: JANE DEMARCO Room #: 503-P [facility] [place] IN .R.#: [id number] Admission: 06/09/19 Attend Phys: nAdi Elise MD Discharge: Date of : 71 Report #: [id number] 5. Discharge destination would be back to the home setting. 6. Expected therapy by discipline includes PT, OT and speech 1 hour per day each five days a week throughout the duration of the acute inpatient rehabilitation stay. He does have significant cognitive and memory deficits. He will need assistance at home regarding diabetes education. <ELECTRONICALLY SIGNED> By: Andi Elise MD 06/19/19 [id number] Andi Elise MD /nt
[2019-06-19 11:40] LABS: ALBUMIN 1.2 g/dL (3.4-5.0); DIRECT BILIRUBIN 0.2 mg/dL (<0.1-0.3); SGOT 18 U/L (15-37); TOTAL BILIRUBIN 0.6 mg/dL (<0.1-1.0)
[2019-06-19 11:51] LABS: SGPT < 6 U/L (30-65)
--- NOTE | 2019-06-19 15:56 | NUR ---
PT ALERT AND ORIENTED TIMES FOUR, WITH FLAT SOMEWHAT BLUNTED AFFECT. VSS, PT C/O ABD PAIN. ABD ULTRA SOUND ORDERED AND COMPLETED. PT TOLERATES MEDS AND MEALS. PT WORKED WELL WITH PT/OT TODAY. PT MOM AT BEDSIDE FOR MOST OF THE SHIFT. PT SLOWLY PROGRESSING TOWRADS POC GOALS.
[2019-06-19 19:10] VITALS: BP 134/83
--- NOTE | 2019-06-20 00:06 | NUR ---
PT ASSESSMENT COMPLETED AND VSS. MEDS GIVEN ORDERED AND WELL TOLERATED. FALL PRECAUTIONS IN PLACE. ASST WITH REPOSITION FOR COMFORT AND APPLIED ORDERED CREAMS. PT WANTS TO SLEEP WELL TONIGHT. PT REFUSED TO HAVE HIS BRIEF REMOVED. UP WATCHING TV. WILL CONTINUE TO MONITOR FREQUENTLY.
[2019-06-20 06:11] LABS: CALCIUM 7.8 mg/dL (8.5-10.1); CREATININE 0.6 mg/dL (0.7-1.3); POTASSIUM 3.2 mmol/L (3.5-5.1)
[2019-06-20 08:54] VITALS: BP 133/91
--- NOTE | 2019-06-20 13:56 | NUR ---
ASSUMED CARE OF PT AT 0715. PT IS A&OX4 AND VITAL SIGNS ARE STABLE. PT REPORTS NO PAIN AND PARTICIPATED IN SCHEDULED THERAPIES. SINGLE LUMEN PICC TO LEFT UPPER ARM FLUSHES APPROPRAITELY, SITE IS WITHOUT REDNESS, WARMTH, DRAINAGE, OR EDEMA, DRESSING C/D/I. IV TO RIGHT FOREARM FLUSHES APPROPRIATELY, SITE IS WITHOUT REDNESS, WARMTH, DRAINAGE, OR EDEMA, DRESSING C/D/I. ACCU CHECKS BID AND BG MANAGED WITH PO MEDICAITONS. MOTHER IS AT BEDSIDE. THIS NURSE HAD EDUCATION SESSION WITH MOTHER ABOUT PT DIABETES DIAGNOSIS. MOTHER STATES THAT SHE HAS BEEN DOING RESEARCH ON INTERNET ABOUT DIABETES SINCE PT WAS DIAGNOSED ON ADMISSION. MOTHER REPORTS HAVING NUMEROUS QUESTIONS ABOUT DIABETES AND HOW TO BEST HELP PT WITH MANAGEMENT. NURSE PROVIDED PRINTED MATERIAL TO MOTHER AND HELP ANSWER QUESTIONS. CALLED LAYNE ANDRE AND LEFT MESSAGE TO VISIT WITH MOTHER ABOUT DIETARY OPTIONS WITH MANAGEMENT. NURSING WILL CONTINUE TO EDUCATE MOTHER AND PT ABOUT DIABETES PRIOR TO DISCHARGE. FALL PRECAUTIONS IN PLACE AND NURSING WILL CONTINUE TO MONITOR.
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
[2019-06-20 19:30] VITALS: BP 148/90
--- NOTE | 2019-06-21 00:03 | NUR ---
PT ASSESSMENT COMPLETED AND VSS STABLE. MEDS GIVEN ORDERED AND WELL TOLERATED. FALL PRECAUTIONS IN PLACE. VOIDING LARGE AMOUNT OF YELLOW URINE. REPOSITIONING USING WEDGE PILLOW. SLEEPING. WILL CONTINUE TO MONITOR FREQUENTLY.
[2019-06-21 07:45] VITALS: BP 141/89
--- NOTE | 2019-06-21 14:13 | NUR ---
ASSUMED CARE OF PT AT 0715. PT IS A&OX4 AND VITAL SIGNS ARE STABLE. ACCU CHECKS BID AND MANAGED WITH PO MEDICAITONS. ZGUARD WITH SILVADINE APPLIED TO SACRUM, WOUND IS PINK WITH NO DRAINAGE, PT REPOSITIONED EVERY 2 HOURS. RIGHT BKA SURGICAL INCISION DRESSING CHANGED THIS SHIFT WITH XEROFORM, ABD PAD, KERLIX, AND STUMP SOLAR SALES ADVISOR, SITE IS WELL APPROXIMATED WITH QUITA AND W/O REDNESS, DRAINAGE, WARMTH OR EDEMA. BETADINE APPLIED TO WOUNDS ON LEFT GREAT TOE AND PLANTAR OF LEFT FOOT. RIGHT SUBCLAVIAN DRESSING CHANGED THIS SHIFT WITH MINIMUM DRAINAGE FROM SITE. SURGICAL SITE TO LEFT KNEE WELL APPROXIMATED WITH SUTURES, LEFT OPEN TO AIR. SCROTUM REMAINS SLIGHTLY RED, NYSTATIN POWDER APPLLIED PER ORDERS. LEFT SINGLE LUMEN UPPER ARM PICC FLUSHES APPROPRAITELY WITH ADEQUATE BLOOD RETURN, SITE W/O REDNESS, WARMTH, DRAINAGE, OR EDEMA, DRESSING C/D/I. RIGHT FOREARM IV FLUSHES APPROPRIATELY, SITE S/O REDNESS, WARMTH, EDEMA, OR DRAINAGE. URINE OUTPUT APPROPRIATE, BLADDER IS NOT PALPABLE. PT DENIES PAIN, REFUSED TO GET OUT OF BED WITH STAFF THIS SHIFT. MOTHER IS AT BEDSIDE. FALL PRECAUTIONS IN PLACE AND NURSING WILL CONTINUE TO MONITOR.
[2019-06-21 19:12] VITALS: BP 153/90
--- NOTE | 2019-06-22 03:53 | NUR ---
Assumed pt care at 1900.Pt A/OX4,doesn't communicate much ,has a flat affect. Denies pain on assessment. VSS. C/o nausea no emesis,tolerated HS meds without any problems. Woundcare done and pt tolerated well. PICC patent on LUE. Pt has been able to void twice via urinal this shift,adequate amount. Fall precautions in place will continue to monitor pt.
[2019-06-22 08:00] VITALS: BP 104/64
[2019-06-22 13:25] LABS: CALCIUM 8.5 mg/dL (8.5-10.1); CREATININE 0.8 mg/dL (0.7-1.3); POTASSIUM 3.1 mmol/L (3.5-5.1)
--- NOTE | 2019-06-22 15:03 | NUR ---
Gautam 3.1, PT C/O CONSTIPATION. LAST BM WAS 06/20. MIRALAX HAS BEEN ON HOLD. NOTIFIED DR. WINCHESTER AND RECEIVED ORDER TO GIVE POTASSIUM 40MEQ Q4HR FOR 2 DOSES. MAG CITRATE ONE TIME AND MIRALAX PRN. WILL GIVE MED ORDERED. SHIFT NOTE: ASSUMED CARE OF PT AT 0715. PT IS A&OX4 AND VSS ON RA. C/O RIGHT SHOULDER PAIN RATES PAIN 6/10, GAVE PRN TRAMADOL. APPLIED VOLATAREN GEL ORDER. FEELS BETTER. CONTINUE TO BE ON METOCLOPRAMIDE IV BEFORE MEALS, DENIES NAUSEA/ VOMITING TODAY. PT REQUESTS TO BE ON REGULAR DIET. PT IS NOT DM, BS BID HAS BEEN STABLE. ROSSY OK LAST WEEK FOR PT TO BE ON REGULAR DIET SINCE PT IS NOT DM AND HAS POOR APPETITE. ZGUARD WITH SILVADINE APPLIED TO SACRUM, WOUND IS PINK WITH NO DRAINAGE, IT LOOKS BETTER. ENCOURAGE PT REPOSITIONED EVERY 2 HOURS. OT GAVE PT SHOWER THIS AM. RIGHT BKA SURGICAL INCISION DRESSING CHANGED THIS SHIFT WITH XEROFORM, ABD PAD, KERLIX, AND STUMP BUYER INTERN, SITE IS WELL APPROXIMATED WITH QUITA AND W/O REDNESS, DRAINAGE, WARMTH OR EDEMA. REASSMENT PER CHART. BETADINE APPLIED TO WOUNDS ON LEFT GREAT TOE AND PLANTAR OF LEFT FOOT. RIGHT SUBCLAVIAN DRESSING CHANGED. C/D/I. SURGICAL SITE TO LEFT KNEE WELL APPROXIMATED WITH SUTURES, LEFT OPEN TO AIR. SCROTUM REMAINS SLIGHTLY RED, NYSTATIN POWDER APPLLIED PER ORDERS. LEFT SINGLE LUMEN UPPER ARM PICC PATENT AND INTACT. DRESSING C/D/I. RIGHT FOREARM IV FLUSHES APPROPRIATELY, SITE S/O REDNESS, WARMTH, EDEMA, OR DRAINAGE. CONTINUE TO BE ON CEFAZOLIN IV Q8HR. URINE OUTPUT APPROPRIATE. OFFERED SUPPORTIVE CARE. PT UP FOR THERAPY. FALL PRECAUTIONS IN PLACE AND NURSING WILL CONTINUE TO MONITOR.
[2019-06-22 19:42] VITALS: BP 119/80
--- NOTE | 2019-06-22 23:16 | NUR ---
PT ASSESSMENT COMPLETED AND VSS. MEDS GIVEN ORDERED AND WELL TOLERATED. FALL PRECAUTIONS IN PLACE. TURNED ORDERED. PRN PAIN MED HELPFUL. SLEEPING WELL AT THIS TIME. WILL CONTINUE TO MONITOR.
[2019-06-23 07:39] VITALS: BP 113/73
--- NOTE | 2019-06-23 07:45 | NUR ---
ASSUME PT CARE AT 0700. VSS ON RA. REASSESSMENT PER CHART. PT SLEPT GOOD LAST NIGHT. BS 102. METOCLOPRAMIDE GIVEN BEFORE BREAKFAST. LAST BM WAS 4 DAYS AGO. CITRA MAG GIVEN AND MIRALAX GIVEN YESTERDAY. NO RESULT. WILL CONTINUE TO MONITOR BM, ENCOURAGE PT TO DRINK MORE FLUID. FALL PRECAUTION IN PLACE. WILL CONTINUE TO MONITOR.
--- NOTE | 2019-06-23 13:58 | NUR ---
team meeting, recommendation: having urination and on high flomax. he will need dm education from nursing for his mom. cont on IV abx. re team
[2019-06-23 19:24] VITALS: BP 137/87
--- NOTE | 2019-06-24 01:20 | NUR ---
ASSUMED CARE AROUND 1900. AXOX4. L KNEE 5 QUITA REMOVED, NO BLEEDING, TOLERATED GREAT. NO S/S ACUTE DISTRESS NOTED OR REPORTED AT THIS TIME. WILL CONT TO MONITOR FOR ANY CHANGES IN CONDITION.
[2019-06-24 07:25] VITALS: BP 127/76
[2019-06-24 20:01] VITALS: BP 134/90
--- NOTE | 2019-06-24 23:51 | NUR ---
PT ASSESSMENTS DONE AND VSS. MEDS GIVEN ORDERED. FALL PRECAUTIONS IN PLACE. REPOSITIONED WITH WEDGE AND BARRIER CREAM APPLIED. NEURO CHECK TO BKA SITE WNL AND DRESSING INTACT. SLEEPING WELL. WILL CONTINUE TO MONITOR FREQUENTLY.
[2019-06-25 06:02] LABS: ABSOLUTE NEUTROPHILS 3.5 thou/uL (1.4-8.2); BASOPHILS 1.4 % (0.0-2.0); EOSINOPHILS 5.5 % (0.0-3.0); HEMATOCRIT 24.8 % (42.0-52.0); HEMOGLOBIN 8.4 gm/dL (14.0-18.0); MCH 28.1 pg (26.0-34.0); MCHC 33.9 g/dL (28.0-37.0); MONOCYTES 8.5 % (1.0-8.0); PLATELET COUNT 434 thou/uL (150-400); POLYS 53.6 % (36.0-66.0); RBC 2.98 mil/uL (4.50-6.00); RDW 17.2 % (10.5-14.5); WBC 6.5 thou/uL (4.0-11.0)
[2019-06-25 06:35] LABS: CALCIUM 7.9 mg/dL (8.5-10.1); CREATININE 0.6 mg/dL (0.7-1.3); MAGNESIUM 1.8 mg/dL (1.8-2.4); POTASSIUM 3.2 mmol/L (3.5-5.1)
[2019-06-25 07:15] VITALS: BP 143/91
--- NOTE | 2019-06-25 20:12 | NUR ---
Assumed care approx. 0700 this AM. Potassium IV replacement administered today. Patient continues to need voiding reinforcement. Patient's mother at bedside trying to reading coach patient during some therapy today, and patient seemed to be getting frustrated. Motivation seems to be lacking with certain aspects of the patient's care. Daily dressing changes completed. Patient in wheelchair most of shift besides with therapies. From nursing perspective, not much progress made today due to refusal of some treatments.
[2019-06-25 20:18] VITALS: BP 131/85
--- NOTE | 2019-06-26 04:27 | NUR ---
ASSUMED CARE OF PT AT 1915. PT IS A&OX4. IS ON ROOM AIR. IS STABLE. REPORTS SORENESS IN RIGHT SHOULDER. VOLTAREN APPLIED. PT HAS MULTIPLE WOUNDS WITH TREATMENT ORDERS. PLEASE SEE APPROPRIATE SECTIONS OF CHART FOR DETAILS. PT IS ABLE TO TURN SELF IN BED, BUT NEED ENCOURAGEMENT. PT FAVORS BEING ON BACK. EDUCTION PROVIDED. PT HOLDS URINE & NEEDS ENCOURAGEMENT TO VOID PER URNINAL. PT TRANSFERS PER SLIDE BOARD TO CHAIR. PT HAS RIGHT BKA. DRSG INTACT. FALL PRECAUTIONS & HOURLY ROUNDING MAINTAINED. PT IS CURRENTLY SLEEPING. CALL LIGHT IS WITHIN REACH. LABS & VITALS REVIEWED. WILL CONTINUE TO MONITOR.
[2019-06-26 07:30] VITALS: BP 142/89
[2019-06-26 19:35] VITALS: BP 129/82
--- NOTE | 2019-06-26 20:57 | NUR ---
ASSUMED CARE OF PT AT 0715. PT IS A&OX4 AND VITAL SIGNS ARE STABLE. PT REPORTED PAIN IN RIGHT SHOULDER WHICH WAS MANAGED WITH TOPICAL OINTMENTS. PT PARTICIPATED IN SCHEDUELED THERAPIES. CONTINUED EDUCATION WITH MOTHER AND PT ABOUT DIABETES MANAGEMENT. PT AND MOTHER COMMUNICATED UNDERSTANDING ABOUT MANAGING DIETARY INTAKE, MONITORING BLOOD GLUCOSE, S/S OF BLOOD GLUCOSE ABNORMALITIES, AND UNDERSTANDING ABOUT MEDICAITONS PT TAKES FOR MANAGEMENT. ACCU CHECKS BID AND MANAGED WITH PO MEDICAITONS, DRESSINGS TO R BKA, R SUBCLAVIAN CHANGED, WOUNDS TO SACRUM, L FOOT, AND L KNEE TREATED PER ORDERS. IV TO R FOREARM AND SINGLE LUMEN PICC TO L UPPER ARM WITHOUT REDNESS, WARMTH, DRAINAGE, OR EDEMA, DRESSINGS C/D/I, FLUSH APPROPRIATELY. FALL PRECAUTIONS IN PLACE AND NURSING WILL CONTINUE TO MONITOR.
--- NOTE | 2019-06-26 22:49 | NUR ---
ASSUMED CAR OF THE PT AT 1915PM. ALERT ET ORIENTED X 2. MAKES NEEDS KNOWN. IV INFUSING WITHOUT ANY DIFFICULTY. HEART REGULAR. LUNGS CLEAR BILATERALLY, RESP., EVEN, AND UNLABORED. +BS HEARD IN ALL 4 QUADRANTS. DENIES PAIN AT THIS TIME. REMAINS ON 12 MINUTE CHECKS.
--- NOTE | 2019-06-27 01:00 | NUR ---
the pt voided 800cc of clear ramirez urine.
[2019-06-27 07:39] VITALS: BP 138/78
--- NOTE | 2019-06-27 16:02 | NUR ---
ASSUMED CARE OF PT AT 0715. PT IS A&OX4 AND VITAL SIGNS ARE STABLE. PT VOIDING APPROPRAITELY WITH URINAL. ACCU CHECKS BID AND BG MANAGED WITH PO MEDICAITONS. DRESSINGS CHANGED THIS SHIFT TO RT BKA AND RT SHOULDER THIS SHIFT. APPLIED BETADINE TO LT KNEE AND FOOT WOUNDS, APPLIED A SILVADINE MIXED WITH Z-GUARED TO WOUND ON SACRUM. LEFT UPPER ARM PICC IN PLACE AND FLUSING APPROPRAITELY, DRESSING C/D/I, SITE W/O DRAINAGE, REDNESS, WARMTH, OR EDEMA. PERIPHERAL IV REMOVED BY IV TEAM THIS SHIFT. PT REPORTED SHOULDER PAIN WHICH WAS MANAGED WITH TOPICAL MEDICATIONS. PT PARTICIPATED IN SCHEDULED THERAPIES. MOTHER AT BEDSIDE. CONTINUED EDUCATION WITH MOTHER AND PT ABOUT HEALTHY FOOD CHOICES, RECOMMEND CONTINUED EDUCATION. FALL PRECAUTIONS IN PLACE NURSING WILL CONTNUE TO MONITOR.
[2019-06-27 19:30] VITALS: BP 130/78
--- NOTE | 2019-06-28 03:10 | NUR ---
PT RESTING COMFORTABLY AT CHANGE OF SHIFT. NO C/O PAIN TONIGHT. WOUND AREAS CHECKED, DRESSINGS DRY AND INTACT. L UPPER ARM PICK FLUSHED, IV ANTIBIOTIC ADMINISTERED IV. SLEPT WELL THROUGH THE NIGHT.
[2019-06-28 10:35] VITALS: BP 129/88
[2019-06-28 19:15] VITALS: BP 137/94
--- NOTE | 2019-06-28 19:51 | NUR ---
ASSUMED CARE OF PT AT 0715. PT IS A&OX4 AND VITAL SIGNS ARE STABLE. PT REFUSED TO GET OUT OF BED WITH NURSING STAFF. CONTINUED TO REFUSE MEALS. PICC LINE IN LEFT UPPER ARM PATENT, DRESSING C/D/I, SITE WNL. WOUNDS CLEANED AND DRESSINGS CHANGED THIS SHIFT PER ORDERS. ACCU CHECKS BID AND MANAGED WITH PO MEDICAITONS. PT REQUIRED QUES TO EMPTY BLADDER APPROPRIATELY. FALL PRECAUTIONS IN PLACE AND NURSING WILL CONTINUE TO MONITOR.
--- NOTE | 2019-06-29 02:51 | NUR ---
ASSUMED CARE FROM DAY SHIFT , PT RESTING IN BED , TURN EVERY 2 HOURS , NO CONCERNS VOICED , RT LEG DRESSING INTACT DENIES PAIN, PT RESTED WELL THROUGHOUT HOURLY ROUNDS, WILL CONTINUE WITH CURRENT PLAN OF CARE AND WILL REPORT CHANGES OR ABNORMAL FINDINGS.
[2019-06-29 07:14] LABS: ABSOLUTE NEUTROPHILS 3.1 thou/uL (1.4-8.2); BASOPHILS 1.2 % (0.0-2.0); EOSINOPHILS 6.9 % (0.0-3.0); HEMOGLOBIN 8.6 gm/dL (14.0-18.0); LYMPHOCYTES 34.1 % (24.0-44.0); MCH 27.9 pg (26.0-34.0); MCHC 33.2 g/dL (28.0-37.0); MONOCYTES 6.9 % (1.0-8.0); PLATELET COUNT 386 thou/uL (150-400); POLYS 50.9 % (36.0-66.0); RDW 17.9 % (10.5-14.5); WBC 6.1 thou/uL (4.0-11.0)
[2019-06-29 07:15] VITALS: BP 127/91
[2019-06-29 07:26] LABS: CALCIUM 8.1 mg/dL (8.5-10.1); CREATININE 0.5 mg/dL (0.7-1.3); MAGNESIUM 1.7 mg/dL (1.8-2.4); POTASSIUM 3.1 mmol/L (3.5-5.1)
[2019-06-29 08:12] VITALS: BP 127/91
--- NOTE | 2019-06-29 11:46 | NUR ---
ASSUMED CARE OF PT AT 0715. REPORTS SLEPT BETTER LAST NIGHT. DENIES BREAKFAST. PT IS A&OX4 AND VITAL SIGNS ARE STABLE. WOUND NURSE CAME AND DID DRESSINGS CHANGED THIS SHIFT TO RT BKA AND RT SHOULDER THIS SHIFT. APPLIED BETADINE TO LT KNEE AND FOOT WOUNDS, APPLIED A SILVADINE MIXED WITH Z-GUARED TO WOUND ON SACRUM. METOCLOPRAMIDE GIVEN BEFORE MEALS ORDRED. CONTINUE TO BE ON ANCEF TID. LEFT UPPER ARM PICC IN PLACE AND FLUSING WITHOUT DIFFICULTY. DRESSING C/D/I, SITE W/O DRAINAGE, REDNESS, WARMTH, OR EDEMA. PT REPORTED SHOULDER PAIN 6/10 VOLTAREN TOPICAL GIVEN. PT PARTICIPATED IN SCHEDULED THERAPIES. MOTHER AT BEDSIDE. PT STILL HAS POOR APPETITE. MOTHER BRINGS HIM SOME FOOD. ZOFRAN GIVEN PER REQUESTS CONTINUED EDUCATION WITH MOTHER AND PT ABOUT HEALTHY FOOD CHOICES, RECOMMEND CONTINUED EDUCATION. FALL PRECAUTIONS IN PLACE NURSING WILL CONTNUE TO MONITOR.
[2019-06-29 20:37] VITALS: BP 110/71
--- NOTE | 2019-06-29 22:26 | NUR ---
ASSUMED CARE OF THE PT AT 1914 PM. ALERT ET ORIENTED X 2. MAKES NEEDS KNOWN. HEART RATE REGULAR. LUNG CLEAR BILATERALLY, RESP., EVEN, AND UNLABOROED. HAS A PICC LINE TO HIS LEFT UPPER ARM. WHICH FLUSHS WITHOUT DIFFICULTY. +BS HEARD IN ALL 4 QUADRANTS. ABD SOFT ET NONTENDOR. CALL LIGHT WITHIN REACH.
--- NOTE | 2019-06-30 04:55 | NUR ---
THE PT VOIDED 700CC OF DARK JUAN ANTONIO URINE PER URINAL.
[2019-06-30 07:50] VITALS: BP 127/78
--- NOTE | 2019-06-30 12:34 | NUR ---
team meeting, recommendation: nursing cont education with pt and mom on DM, see if mom has got machine to check bs. cont on iv abx, dc when off iv abx. [place]. he will need slide board when dc. therapy found pt juan carlos wheel chair for dc. re team and cont following as needed for dc needs.
[2019-06-30 19:15] VITALS: BP 112/66
--- NOTE | 2019-07-01 04:45 | NUR ---
ASSESSMENT: PT REMAIN ALERT AND ORIENT TIMES THREE. DENIES PAIN. ENCOURGAED TO USE URINAL AT THE BEGINNING OF THE SHIFT. PT PRODUCED 1000ML OF URINE PER URINAL. NO BM SINCE 06/30/19 MIRALAX GIVEN. SOME TIMES PT REFUSES TURNS. RIGHT BKA DRESSING C/D/I. REFUSED TOPICAL DICLOFENAC/AQUAPHOR DURING THE NIGHT, WANTED TO SLEEP. SLOW PROGRESS TOWARDS DC GOALS. ENOURAGED TO EAT SMALL BITES MORE OFTEN, HAS POOR APPETITE. VSS, AFEBRILE. SAFTY MEASURES FOLLOWED. WILL CONTINUE TO MONITOR.
[2019-07-01 09:26] VITALS: BP 121/78
[2019-07-01 19:05] VITALS: BP 137/88
--- NOTE | 2019-07-01 20:54 | NUR ---
ASSUMED CARE OF PT AT 0715. PT IS A&OX4 AND VITAL SIGNS ARE STABLE. PT REPORTS PAIN/SORENESS TO THE RIGHT SHOULDER AND NECK, MANAGED WITH TOPICAL MEDICATIONS, PARTICIPATED IN SCHEDULED THERAPIES. ZOYA PICC DRESSING C/D/I, SITE W/O REDNESS, DRAINAGE, OR EDEMA, FLUSHES APPROPRATELY. DRESSINGS CHANGED THIS SHIFT. CONTINUED EDUCATION WITH MOTHER AND PT ABOUT PT ABOUT MANAGING PT HEALTHCARE NEEDS, RECOMMEND REFFERAL TO TOOL TENDER OUTPATIENT FOLLOWING DISCHARGE. PT CONTINUES TO REFUSE MOST MEALS ON UNIT AND MOTHER IS TAKING PT TO [place] WHERE PT IS EATING LARGE AMOUNTS OF HIGH CARBOHYDRATES, HIGH SUGARS, AND HIGH FATS. PT SHOWS NO INTEREST AT THIS TIME IN PARTICIPATING IN MANAGING HIS HEALTHCARE BY REFUSING TO PARTICIPATE IN EDUCATION AND EXPRESSING NO DESIRE FOR CHANGING LIFESTYLE. PT REQUIRES QUES FOR URINATION. FALL PRECAUTIONS IN PLACE AND NURSING WILL CONTINUE TO MONITOR.
--- NOTE | 2019-07-02 01:36 | NUR ---
PT ASSESSMENT DONE AND VSS. MED GIVEN ORDERED AND WELL TOLERATED. FALL PRECAUTIONS IN PLACE. PT MORE TALKATIVE THIS EVENING. CREAMS APPLIED ORDERED TO PRESSURE WOUND AND TURNED Q 2 ORDERED. WILL CONTINUE TO MONITOR.
[2019-07-02 08:40] VITALS: BP 114/82
--- NOTE | 2019-07-02 18:20 | NUR ---
ASSUMED CARE OF PT AT 0715. PT IS A&OX4 AND VITAL SIGNS ARE STABLE. NURSING CONTINUING WITH EDUCATION. PT INSTRUCTED IN BLOOD GLUCOSE CHECKS. AT DINNER PT WAS SUPERVISED AND ABLE TO COMPLETE BLOOD GLUCOSE CHECK WITH PROPER TECHNIQUE, NURSING WILL CONTINUE TO ASSIST PT WITH BLOOD GLUCOSE CHECKS. PT CONTINUES TO EAT MEALS AT THE [place] THAT ARE HIGH IN CARBOHYDRATES, SUGARS, AND FATS. NURSING WILL CONTINUE TO ENCOURAGE HEALTHY FOOD CHOICES. ACCU CHECKS BID AND MANAGED WITH PO MEDICATIONS. DRESSINGS CHANGED THIS SHIFT. URINATING APPROPRATELY WITH OCCASSIONAL QUES FROM NURSING STAFF. LEFT UPPER ARM PICC IN PLACE AND FLUSHES APPROPRATLEY. FALL PRECAUTIONS IN PLACE AND NURSING WILL CONTINUE TO MONITOR.
[2019-07-02 20:02] VITALS: BP 132/81
--- NOTE | 2019-07-03 02:49 | NUR ---
PT ASSESSMENT DONE AND VSS. MEDS GIVEN ORDERED. WELL TOLERATED. SLEEPING WELL. FALL PRECAUTIONS IN PLACE. 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 RED INFLAMED AREAS, WARM TO TOUCH. WILL CONTINUE TO MONITOR.
[2019-07-03 05:46] LABS: HEMOGLOBIN 8.3 gm/dL (14.0-18.0); MCH 28.2 pg (26.0-34.0); MCHC 33.1 g/dL (28.0-37.0); MCV 85.1 fL (80.0-100.0); RBC 2.94 mil/uL (4.50-6.00); RDW 17.7 % (10.5-14.5); WBC 6.3 thou/uL (4.0-11.0)
[2019-07-03 06:02] LABS: CALCIUM 8.4 mg/dL (8.5-10.1); CREATININE 0.5 mg/dL (0.7-1.3); MAGNESIUM 1.7 mg/dL (1.8-2.4); POTASSIUM 3.4 mmol/L (3.5-5.1)
[2019-07-03 07:15] VITALS: BP 121/76
--- NOTE | 2019-07-03 13:27 | NUR ---
WOUND CARE F/U; ROUNDING WITH DR BRITTANEY BRIGHT AND MOHINI BSN. THE RIGHT LE HAS A SCAB THAT IS INTACT/STABLE. THE BKA SITE IS INTACT AND STABLE WELL. RECOMMENDATION; CONTINUE CURRENT WOUND CARE ORDERS. DISCUSSED WITH JHOANA
--- NOTE | 2019-07-03 16:12 | NUR ---
ASSUMED CARE OF PT AT 0715. PT IS A&OX4 AND VITAL SIGNS ARE STABLE. DRESSINGS CHANGED THIS AFTERNOON BY THIS NURSE. PT EDUCATED ABOUT WOUND CARE AND DIABETIC FOOT CARE DURING DRESSING CHANGES. POTASSIUM AND MAGNESIUM PO GIVEN PER LAB RESULTS. ACCU CHECKS BID AND MANAGED WITH PO MEDICAITONS. PT AGREES TO CALL STAFF BETWEEN [phone] AND [phone] FOR BLOOD GLUCOSE CHECKS, WHICH HE WILL BE ASSISTED WITH PERFORMING. LEFT UPPER ARM PICC WNL. WAFFLE CUSHION IN CHAIR AND PT ENCOURAGED TO REPOSITION EVERY 1-2 HOURS. SPOKE WITH MOTHER ABOUT OBTAINING A HOME BG MONITOR AND SUPPLIES. MOTHER STATES THAT SHE WILL BRING THE SUPPLIES TO THE UNIT WHEN SHE OBTAINS THEM SO THAT PT CAN PRACTICE WITH DEVICE BEFORE D/C. FALL PRECAUTIONS IN PLACE AND NURSING WILL CONTINUE TO MONITOR.
[2019-07-03 19:10] VITALS: BP 149/94
--- NOTE | 2019-07-04 00:25 | NUR ---
ASSUMED CARE OF PT AT 1915. ALERT AND ORIENTED. VSS ON RA. REPORTS SORENESS IN RIGHT SHOULDER AND NECK VOLTAREN APPLIED. DRESSING ON RBA INTACT. REDNESS ON BUTTOCKS APPLIED CREAM ON ORDRED. ON LOW AIR LOSS MATRESS. ASSISTED PT TO LAY ON THE SIDE AND ENCORUAGED PT TO TURN MUCH HE CAN. REASSESSMENT PER CHART. NIGHT MEDS GIVEN. RIGHT AC IV PATENT AND INTACT. TUBES CHANGED PER PROTOCOL. ABT IV GIVEN ORDERED FOR RIGHT BKA. PT TOOK ALL HIS MEDS BUT PT REFUSES MIRALAX. LAST BM WAS YESTERDAY. PT IS ABLE TO TURN SELF IN BED, BUT NEED ENCOURAGEMENT. PT FAVORS BEING ON BACK. EDUCATION PROVIDED. HAD 1000CC VOID PER URNINAL AT THE BEGINNING OF THIS SHIFT. FALL PRECAUTIONS & HOURLY ROUNDING MAINTAINED. PT IS CURRENTLY SLEEPING. CALL LIGHT IS WITHIN REACH. LABS & VITALS REVIEWED. WILL CONTINUE TO MONITOR.
[2019-07-04 07:10] VITALS: BP 119/80
--- NOTE | 2019-07-04 10:39 | NUR ---
ASSUMED CARE AT 0700. PATIENT IS ALERT AND ORIENTED X4. PATIENT CHAUHAN'S, HEAD INSPECTOR ARE EQUAL. LUNGS ARE CLEAR. ABD IS SOFT WITH BSX4. PATIENT HAS RIGHT BKA, WITH STUMP POLICEWOMAN ON. DRESSING CHANGED. CREAM TO HIS BOTTOM. PATIENT VOIDS PER URINAL. PATIENT HAS PICC LINE IN HIS UPPER LEFT ARM. FALL AND SAFETY PROTOCOLS IN PLACE. DENIES ANY PAIN AT THIS TIME. CONTINUES TO PROGRESS SLOWLY TOWARDS D/C GOALS . WILL CONTINUE TO MONITER.
[2019-07-04 19:49] VITALS: BP 126/78
--- NOTE | 2019-07-05 06:40 | NUR ---
ASSESSMENT: ASSUMED CARE OF PT AT 0000, RECEIVED REPORT FROM JHOANA GARCIA. PT IS A+OX3, VSS, AFEBRILE. SLEEPING AT THE TIME OF ASSESSMENT. NO BM.
[2019-07-05 07:30] VITALS: BP 122/82
--- NOTE | 2019-07-05 09:49 | NUR ---
ASSUMED CARE AT 0700. PATIENT IS ALERT AND ORIENTED X4. PATIENT CHAUHAN'S, SURGICAL PATHOLOGIST ARE EQUAL. LUNGS ARE CLEAR. ABD IS SOFT WITH BSX4. PATIENT VOIDS PER URINAL JUAN ANTONIO COLORED URINE. IN BED FOR MEALS. BKA DRESSING CHANGED. CREAM APPLIED TO HIS BOTTOM. FALL AND SAFETY PROTOCOLS IN PLACE. DENIES ANY PAIN AT THIS TIME. WILL CONTINUE TO MONITER.
[2019-07-05 20:09] VITALS: BP 130/90
[2019-07-05 23:01] VITALS: BP 130/78
[2019-07-06 00:06] VITALS: BP 130/78
--- NOTE | 2019-07-06 01:08 | NUR ---
PATIENT HAS BEEN LAYING IN BED MOST OF EVENING WATCHING TV. HE DENIES PAIN. HIS DRESSING ON HIS RIGHT BKA STUMP IS DRY AND COVERED. HIS LEFT KNEE WOUND HAS HAD MED CREAMS APPLIED ORDERED. PATIENT HAD MELATONIN 10MG AT HS AND FELL ASLEEP CLOSE TO MIDNIGHT. IV CEPHALOZIN RAN AT 2200. PATIENT HAS BROKEN SKIN AREA AT COCCYX AREA AND SILVADENE WITH MORPHINE CREAM WAS APPLIED. AREA IS PINK AND HEALING. LEFT UNCOVERED. PATIENT'S PICC SINGLE LUMEN LINE IN LEFT UPPER ARM IS PATENT AND NO REDNESS OR SIGNS OF INFECTION AT THE SITE. PATIENT IS A/OX 4. HE IS QUIET BUT COOPERATIVE. HE STATES HE IS TIRED OF BEING HERE AND CAN'T WAIT TILL HE CAN GO HOME. PATIENT USES URINAL AT HS. WILL CONTINUE TO MONITOR.
[2019-07-06 09:26] LABS: CALCIUM 8.6 mg/dL (8.5-10.1); CREATININE 0.5 mg/dL (0.7-1.3); MAGNESIUM 1.7 mg/dL (1.8-2.4); POTASSIUM 3.7 mmol/L (3.5-5.1)
[2019-07-06 10:14] VITALS: BP 125/78
--- NOTE | 2019-07-06 19:54 | NUR ---
ASSUMED CARE AT 0700. REPORTS SLEPT GOOD LAST NIGHT. VSS ON RA. PATIENT ABD IS SOFT WITH BSX4. LAST BM WAS YESTERDAY. PATIENT HAS RIGHT BKA, WITH STUMP WELL PULLER HEAD ON. DRESSING CHANGED BY WOUND NURSE. ZGUARD CREAM TO HIS BOTTOM. PATIENT VOIDS PER URINAL. PATIENT HAS PICC LINE IN HIS UPPER LEFT ARM. UP TO DINNING ROOM FOR BREAKFAST, LUNCH, DINNER. MORE MOTIVATION TODAY. APPETITE GET BETTER. OFFERED SUPPORT AND ENCOURAGEMENT. MEDS GIVEN ORDERED. FALL AND SAFETY PROTOCOLS IN PLACE. DENIES ANY PAIN AT THIS TIME. CONTINUES TO PROGRESS SLOWLY TOWARDS D/C GOALS . GAVE REPORT TO NIGHT NURSE TO CONTINUE TO MONITOR.
[2019-07-06 20:23] VITALS: BP 148/74
--- NOTE | 2019-07-07 04:53 | NUR ---
1909-Report given by day-shift nurse and care assumed. The pt. cooperative with cares and meds., A/O x3. Uses urinal. PICC line left upper arm patent, IV push Regaln given scheduled per order and also IV ABT. He slept sound all nite tonite.
[2019-07-07 07:20] VITALS: BP 128/77
[2019-07-07 08:12] VITALS: BP 125/78
--- NOTE | 2019-07-07 13:29 | NUR ---
team meeting, recommendation: cont followed by ID, had ct today to check see if infection, id wants to cont iv from few more weeks. cont with juan carlos wheel chair, [place] pcp and [place]. will re team and cont following as needed for dc needs.
--- NOTE | 2019-07-07 17:55 | NUR ---
ASSUMED CARE AT 0700. REPORTS SLEPT GOOD LAST NIGHT. VSS ON RA. MORNING MEDS GIVEN. PT HAD ONE INCONT B &B THIS AM MAY BE D/T DEEPLY IN SLEEPING WITHOUT CALLING FOR HELP. PATIENT ABD IS SOFT WITH BSX4. PATIENT HAS RIGHT BKA, WITH STUMP HEEL SLUGGER ON. INCISION INTACT DRY, LITTLE RED. APPLIED ABD AND COVER WITH HEEL SLUGGER. ZGUARD CREAM TO HIS BOTTOM. PATIENT VOIDS PER URINAL HAD 1100CC THIS SHIFT. PATIENT HAS PICC LINE IN HIS UPPER LEFT ARM. PATENT AND INTACT. IV ABT GIVEN ORDERED. HAD CT CSPINE AND CT CHEST DONE TODAY WILL FOLLOW UP WITH DR. LONG. UP TO DINNING ROOM FOR BREAKFAST, LUNCH. BUT WANTED TO EAT IN BED FOR DINNER. APPETITE IS GETTING BETTER. PT ABLE TO CHECK BS BY HIMSELF WITH STAFF SUPERVISION. MORE MOTIVATION TODAY. OFFERED SUPPORT AND ENCOURAGEMENT. FALL AND SAFETY PROTOCOLS IN PLACE. DENIES ANY PAIN AT THIS TIME. REFUSE VOLTARENE GEL AT 1800 CONTINUES TO PROGRESS SLOWLY TOWARDS D/C GOALS . WILL GIVE REPORT TO NIGHT NURSE TO CONTINUE TO MONITOR.
[2019-07-07 19:52] VITALS: BP 115/60
--- NOTE | 2019-07-08 03:48 | NUR ---
ASSUMED CARE OF PT AT 1915. PT IS A&OX4 AND VITAL SIGNS ARE STABLE. SINGLE LUMEN PICC LINE IN UPPER LEFT ARM IS PATENT, DRESSING C/D/I, SITE WNL. PT VOIDING APPROPRIATELY WITHOUT CUES FROM STAFF. PATIENT CHANGING POSITION INDEPENDENTLY THROUGHOUT SHIFT. PT ASLEEP AT 2300, WOKE ONCE AT 1500 TO URINATE. FALL PRECAUTIONS IN PLACE AND NURSING WILL CONTINUE TO MONITOR.
[2019-07-08 08:04] VITALS: BP 123/84
--- NOTE | 2019-07-08 19:18 | NUR ---
PT ALERT AND ORIENTED TIMES FOUR. 97%RA. C/O PAIN PRN MEDICATIONS GIVEN WITH GOOD RELEIF. PT WORKED WELL WITH PT/OT TODAY. PT TOLERATES MEALS AND MEALS THIS SHIFT. PT MOM AT BEDSIDE. PT SLOWLY PROGRESSING TOWRADS POC GOALS.
[2019-07-08 20:15] VITALS: BP 134/88
[2019-07-09 06:20] LABS: ABSOLUTE NEUTROPHILS 2.4 thou/uL (1.4-8.2); BASOPHILS 1.4 % (0.0-2.0); EOSINOPHILS 6.8 % (0.0-3.0); HEMATOCRIT 21.7 % (42.0-52.0); HEMOGLOBIN 7.1 gm/dL (14.0-18.0); LYMPHOCYTES 32.4 % (24.0-44.0); MCH 27.9 pg (26.0-34.0); MCHC 32.5 g/dL (28.0-37.0); MCV 85.7 fL (80.0-100.0); MONOCYTES 6.2 % (1.0-8.0); PLATELET COUNT 283 thou/uL (150-400); POLYS 53.2 % (36.0-66.0); RBC 2.53 mil/uL (4.50-6.00); RDW 17.5 % (10.5-14.5); WBC 4.6 thou/uL (4.0-11.0)
[2019-07-09 06:25] LABS: CALCIUM 8.6 mg/dL (8.5-10.1); CREATININE 0.5 mg/dL (0.7-1.3); MAGNESIUM 1.8 mg/dL (1.8-2.4); POTASSIUM 3.5 mmol/L (3.5-5.1)
[2019-07-09 08:00] VITALS: BP 113/78
--- NOTE | 2019-07-09 10:08 | NUR ---
ASSUMED CARE AT 0700. PATIENT IS ALERT AND ORIENTED X4. PATIENT MOVES LEFT LEG PATIENT HAS RIGHT BKA. LUNGS ARE CLEAR. ABD IS SOFT WITH BSX4. VOIDING PER URINAL, JUAN ANTONIO COLORED URINE. UP IN W/C TO DINING ROOM FOR MEALS. PATIENT HAS LEFT UPPER ARM PIC LINE. FALL AND SAFETY PROTOCOLS IN PLACE. DENIES ANY PAIN. CONTINUES TO PROGRESS SLOWLY TOWARDS D/C GOALS. WILL CONTINUE TO MONITER.
[2019-07-09 19:41] VITALS: BP 142/100
[2019-07-10 00:57] VITALS: BP 120/71
[2019-07-10 08:00] VITALS: BP 121/82
--- NOTE | 2019-07-10 11:03 | NUR ---
WOUND CARE F/U; ROUNDING WITH KATI MUCKER OPERATOR AND MOHINI BSN. THE BKA INSICION SITE IS STABLE AND INTACT. THE PERIWOUND TISSUE HAS NO ERYTHEMA OR ANY OTHER S/S OF INFECTION. RECOMMENDATION; CONINUE CURRENT PLAN OF CARE. DISCUSSED WITH JHOANA
[2019-07-10 19:30] VITALS: BP 137/92
--- NOTE | 2019-07-10 20:28 | NUR ---
PATIENT ALERT AND ORIENTED TO SELF AND LOCATION AND LISTENING TO MUSIC FROM HIS PHONE AT BEDSIDE. MOTHER AT BEDSIDE DURING THE DAY. PATIENT TO MRI THIS AFTERNOON. PATIENT AND MOTHER COOPERATIVE WITH POC.
--- NOTE | 2019-07-11 03:21 | NUR ---
PT RESTING COMFORTABLY EARLY IN EVENING, WATCHING TV AND LISTENING TO MUSIC. TOOK HS MEDS AND RECEIVED IV ANTIBIOTIC THROUGH LT. UPPER ARM PICC. NO C/O PAIN, AND SLEPT WELL THROUGH THE NIGHT.
[2019-07-11 08:46] VITALS: BP 141/94
--- NOTE | 2019-07-11 17:53 | NUR ---
ASSUMED CARE OF PT AT 0715. PT IS A&OX3-4, VITAL SIGNS ARE STABLE. ACCU CHECKS BID AND MANAGED WITH PO MEDICATIONS. PT PARTICIPATED IN MANAGING ACCU CHECKS. SINGLE LUMEN PICC IN LEFT UPPER ARM, PATENT, DRESSING C/D/I, DRESSINGS CHANGED PER ORDERS. PAIN IN RIGHT SHOULDER, MANAGED WITH DICLOFENAC GEL. ORDERS TO OBTAIN INFORMED CONSENT FOR RIGHT STERNOCLAVICULAR JOINT IRRIGATION AND DEBRIDEMENT. PROVIDER HAS NOT SPOKEN TO PT OR MOTHER AT THIS TIME. CONSENT FORM ON CHART IN INTEGRITY SPECIALIST. FALL PRECAUTIONS IN PLACE AND NURSING WILL CONTINUE TO MONITOR.
[2019-07-11 19:30] VITALS: BP 137/90
--- NOTE | 2019-07-12 04:13 | NUR ---
PT ASSESSMENT DONE AND VSS. MEDS GIVEN AND WELL TOLERATED. FALL PRECAUTIONS IN PLACE. SLEEPING WELL. NPO AFTER OOOO. WILL CONTINUE TO MONITOR.
[2019-07-12 05:21] LABS: HEMATOCRIT 26.9 % (42.0-52.0); HEMOGLOBIN 8.9 gm/dL (14.0-18.0)
[2019-07-12 08:00] VITALS: BP 131/88
[2019-07-12 11:00] VITALS: BP 131/86
[2019-07-12 21:05] VITALS: BP 122/75
--- NOTE | 2019-07-12 21:13 | NUR ---
ASSUMED CARE OF PT AT 0715. PT TRANSFERED TO SURGERY AT APPROXIMATELY 0800 AND RETURNED AT APPROXIMATELY 1030. PT IS A&OX3-4, VITAL SIGNS STABLE. PT DENIES NAUSEA BUT REPORTS FEELING "GROGGY". PATIENT REPORTS LESS PAIN IN RIGHT SHOULDER AREA. ORIGINAL SURGICAL DRESSING IN PLACE. PATIENT'S MOTHER CAME TO UNIT FOLLOWING PROCEDURE AND BROUGHT PT OUTSIDE FOOD, WHICH PT TOLERATED. BLOOD GLUCOSE AT DINNER ELEVATED, NIGHT NURES AWARE AND WILL RECECK BLOOD GLUCOSE AT BEDTIME. FALL PRECAUTIONS IN PLACE AND NURSING WILL CONTINUE TO MONITOR.
--- NOTE | 2019-07-13 00:13 | NUR ---
PT ASSESSMENT DONE AND VSS. MED GIVEN AND WELL TOLERATED. FALL PRECAUTIONS IN PLACE. DRESSING TO RIGHT UPPER CHEST DRY AND INTACT FROM I/D. SLEEPING WELL. WILL CONTINUE TO MONITOR.
[2019-07-13 09:02] VITALS: BP 105/70
--- NOTE | 2019-07-13 11:48 | NUR ---
ASSUMED CARE AT 0700. PATIENT IS ALERT AND ORIENTED X4. PATIENT CHAUHAN'S, INCLUDIDNG HIS RIGHT STUMP. RIGHT STUMP HAS STUMP REHABILITATION DIRECTOR ON AND INTACT. QUITA DRY AND INTACT TO STUMP INCISION. PATIENT USES SLIDE BOARD FOR TRANSFERS FROM BED TO W/C. PATIENT HAS PICC LINE IN HIS LEFT UPPER ARM. SITE WITHOUT REDNESS OR SWELLING. FALL AND SAFETY PROTOCOLS IN PLACE. C/O PAIN IN HIS RIGHT UPPER CHEST WALL WHERE HE HAD I & D YESTERDAY. DRESSING IS DRY AND INTACT.MEDICATED WITH PRN PAIN MEDS ORDERED. PATIENT IS VOIDING JUAN ANTONIO COLORED URINE PER URINAL. WILL CONTINUE TO MONITER.
--- NOTE | 2019-07-13 14:00 | NUR ---
cm consulted for waters of cefazolin 2gm q 8hr and ceftriaxone 2gm q day cost. nurys spoke with adan at [facility] inpt pharmacy who asked to have consult faxed to juan. nurys faxed to [phone] and sent e-mail as well. will cont following as needed for dc needs.
[2019-07-13 19:12] VITALS: BP 120/72
--- NOTE | 2019-07-14 01:01 | NUR ---
PT ALERT AND ORIENTED X 4. LEFT PICC INTACT AND PATENT. RIGHT CHEST DRESSING C/D/I. RIGHT STUMP INDUSTRIAL DESIGN ENGINEER ON. PT DENIES PAIN OR DISCOMFORT. REFUSES Q2H TURNS. BED ALARM ON FOR SAFETY. PT APPEARS TO BE SLEEPING ON HOURLY ROUNDS.
[2019-07-14 06:36] LABS: ABSOLUTE NEUTROPHILS 2.8 thou/uL (1.4-8.2); BASOPHILS 1.2 % (0.0-2.0); EOSINOPHILS 4.5 % (0.0-3.0); HEMATOCRIT 26.8 % (42.0-52.0); HEMOGLOBIN 8.7 gm/dL (14.0-18.0); LYMPHOCYTES 38.5 % (24.0-44.0); MCH 27.9 pg (26.0-34.0); MCHC 32.7 g/dL (28.0-37.0); MCV 85.3 fL (80.0-100.0); MONOCYTES 6.5 % (1.0-8.0); PLATELET COUNT 366 thou/uL (150-400); POLYS 49.3 % (36.0-66.0); RBC 3.14 mil/uL (4.50-6.00); RDW 16.8 % (10.5-14.5); WBC 5.7 thou/uL (4.0-11.0)
[2019-07-14 06:43] LABS: CALCIUM 8.6 mg/dL (8.5-10.1); CREATININE 0.6 mg/dL (0.7-1.3); MAGNESIUM 1.7 mg/dL (1.8-2.4); POTASSIUM 3.5 mmol/L (3.5-5.1)
[2019-07-14 07:30] VITALS: BP 125/83
--- NOTE | 2019-07-14 09:51 | NUR ---
received another consult from dr theron mancuso, to see if pt can do home iv cefazolin, rt [place], have sent e-mail to cm supervisor counseling and guidance to see if can do outpt infusion here at [facility] rt pt would not get home health.
--- NOTE | 2019-07-14 12:27 | NUR ---
[facility] AT 0700. PATIENT IS ALERT AND ORIENTED X4. PATIENT CHAUHAN'S, TAKE OFF MAN ARE EQUAL. PATIENT HAS RIGHT BKA WITH STUMP ICE CREAM SHOP ASSOCIATE ON. PATIENT HAS RIGHT CHEST DRESSING THAT IS DRY AND INTACT. PATIENT USES SLIDE BOARD TO TRANSFER TO W/C. PATIENT HAS LEFT PICC LINE FOR IV ABT FOR INFECTION IN RIGHT CHEST WOUND. PATIENT HAD I & D ON SATURDAY. PATIENT HAS SHEARING TO HIS BOTTOM AND CONTINUES TO GET SILVADENE, MSO4, Z GUARD APPLIED BID. HIS BOTTOM CONTINUES TO IMPROVE. FALL AND SAFETY PROTOCOLS IN PLACE. DENIES PAIN AT THIS TIME.CONTINUES TO PROGRESS TOWARDS D/C GOALS. WILL CONTINUE TO MONITER.
--- NOTE | 2019-07-14 12:53 | NUR ---
team meeting, recommendation: needs to stay on main level of his mom home. mom will transport him to iv infusion at [facility] while needing iv abx. dc when can be set up by end of week.
[2019-07-14 19:14] VITALS: BP 132/87
--- NOTE | 2019-07-15 01:12 | NUR ---
PT ALERT AND ORIENTED X 4. LEFT PICC LINE INTACT AND PATENT. VOIDING ADEQUATE AMTS DARK YELLOW URINE PER URINAL. DRESSING TO RIGHT CHEST C/D/I. STUMP GAME MASTER ON. PT C/O PAIN IN RIGHT CHEST INCISION. TYLENOL GIVEN WITH ADEQUATE PAIN RELIEF VERBALIZED. BED ALARM ON FOR SAFETY. PT APPEARS TO BE SLEEPING ON HOURLY ROUNDS.
[2019-07-15 07:30] VITALS: BP 128/85
--- NOTE | 2019-07-15 14:27 | NUR ---
ASSUMED CARE OF PT AT 0715. PT IS ALERT AND ORIENTED TO PERSON, PLACE, AND TIME, VITAL SIGNS ARE STABLE. ACCU CHECK BID AND MANAGED WITH PO MEDICAITONS. SINGLE LUMEN PICC TO LEFT UPPER ARM FLUSHES AND RETURNS BLOOD APPROPRATELY, DRESSING C/D/I, SITE WNL. REPORTS PAIN 3/10 IN RIGHT SHOULDER, MANAGED WITH DICLOFENAC GEL AND ORAL MEDICAITONS, PARTICIPATED IN THERAPIES. CONTINUEING PT DIABETES EDUCATION, PT PARTICIPATING IN BLOOD GLUCOSE CHECKS AND LOGGING RESULTS IN LOG BOOK. MOTHER CONTACTED AND ASKED TO BRING GLUCOSE MONITORING SUPPLIES THAT WILL BE USED AT HOME TO UNIT SO THAT PT CAN BE MONITORED WITH USE PRIOR TO DISCHARGE. PT GIVEN INFORMATION ABOUT HYPOGLYCEMIA AND HYPERGLYCEMIA AND WHEN TO GET MEDICAL ASSISTANCE. WILL CONTINUE WITH EDUCATION AND REINFORCEMENT PRIOR TO DISCHARGE, MOTHER INCLUDED IN ALL EDUCATION. FALL PRECAUTIONS IN PLACE AND NURSING WILL CONTINUE TO MONITOR.
--- NOTE | 2019-07-15 14:42 | NUR ---
Patient participated in community reintegration on 07/15/19 with Physical Therapy. Refer to documentation by PT.
[2019-07-15 19:32] VITALS: BP 124/83
--- NOTE | 2019-07-16 02:48 | NUR ---
ASSUMED CARE FROM DAY SHIFT PT AWAKE RESTING IN BED DENIES PAIN, PT REFUSED MIRALAX FOR HIS CONSTIPATION, ATTEMPTED TO EDUCATE PT ON IMPORTANCE OF MEDICATION PT CONTINUE TO REFUSE. ABD SOFT BOWEL SOUNDS NOTED . WOUND ON LEFT FOOT HEALED , SUMP SHINKER INTACT ON BKA. PT RESTING QUIELTY THROUGHOUT HOURLY ROUNDS, WILL CONTINUE WITH CURRENT PLAN OF CARE.
[2019-07-16 10:00] VITALS: BP 133/85
--- NOTE | 2019-07-16 10:11 | NUR ---
ASSUMED CARE OF PT AT 0715. PT IS ALERT AND ORIENTED TO PERSON, PLACE, AND TIME, VITAL SIGNS ARE STABLE. BLOOD GLUCOSE MONITORED BID AND MANAGED WITH PO MEDICAITONS. NURSING CONTINUING EDUCATION WITH PT AND MOTHER. PT PARTICIPATING IN DIABETES MANAGEMENT ON UNIT. REPORTS PAIN IN RIGHT SHOULDER, MANAGED WITH PO MEDICAITONS AND PARTICIPATED IN THERAPIES. DRESSINGS CHANGED PER ORDERS. PICC LINE IN UPPER LEFT ARM WNL. FALL PRECAUTIONS IN PLACE AND NURSING WILL CONTINUE TO MONITOR.
[2019-07-16] MEDS ORDERED: REGLAN 5 MG TAB5 MG PO (13:13)
[2019-07-16] MEDS ORDERED: REMERON 30 MG T30 M1 PO (13:13)
[2019-07-16] MEDS ORDERED: TYLENOL EXTRA500 MG PO (13:13)
[2019-07-16] MEDS ORDERED: MIRALAX17 GM PO (13:13)
[2019-07-16] MEDS ORDERED: PROTONIX40 M1 PO (13:13)
[2019-07-16] MEDS ORDERED: METFORMIN HCL500 M1 PO (13:13)
[2019-07-16] MEDS ORDERED: IRON325 PO (13:13)
[2019-07-16] MEDS ORDERED: ERGOCALCIF50000 UNIT PO (13:13)
--- NOTE | 2019-07-16 14:49 | NUR ---
cm was asked to speak with pt, mom lukasz and lazara [place] " needing records faxed to get [place], h/p, id notes, therapy notes fax # [phone]."/lazara, verbal consent and written consent per pt and his mom to send records over. iv rocephin 2g daily sent to [facility] outpt infusion dept, spoke with arthur. pt will need iv abx on weekend as well. pt mom ok with transport him daily for iv abx in infusion and in er
[2019-07-16 15:51] VITALS: BP 133/85
[2019-07-16 20:23] VITALS: BP 143/78
--- NOTE | 2019-07-16 23:22 | NUR ---
PT ASSESSMENT DONE AND VSS. MEDS GIVEN AND WELL TOLERATED. FALL PRECAUTIONS IN PLACE. SLEEPING WELL. WILL CONTINUE TO MONITOR.
[2019-07-17 07:30] VITALS: BP 139/82
[2019-07-17] MEDS ORDERED: CEFTRIAXONE2 GM IV (08:34)
--- NOTE | 2019-07-17 09:56 | NUR ---
saturday through saturday [facility] iv outpt infusion clinic # [phone] at 1300, pt mom will transport him daily. [facility], # [phone] instruction to call hour before arriving in ER for iv abx, earlier on weekend is preferred. pt mom lukasz is to set him up appointment [facility] [place].
[2019-07-17 11:55] VITALS: BP 133/85
--- NOTE | 2019-07-17 14:52 | NUR ---
ASSUMED CARE OF PT AT 0715. PT IS ALERT AND ORIENTED TO PERSON, PLACE, AND TIME. VITAL SIGNS ARE STABLE. ORDERS FOR DISCHARGE RECEIVED. PT EDUCATED ABOUT DISCHARGE INSTRUCTIONS, PRINTOUT PACKETS FOR DIABETES EDUCATION AND MEDICATIONS GIVEN TO PT AND MOTHER, REINFORCED DIABETES MANAGEMENT GOALS AND PLANS, PROVIDED TRAINING WITH TEACH BACK FOR USE OF HOME GLUCOMETER, REINFORCED DISCHARGE ORDERS AND FOLLOWUPS. QUITA REMOVED FROM RIGHT BKA. PICC LINE DRESSING CHANGED PER PROTOCOL PRIOR TO DISCHARGE, ABX GIVEN PRIOR TO D/C. MOTHER REMOVED ALL BELONGINGS. DISCHARGE PAPERS SIGNED. PT DISCHARGED AT 1447 WITH [facility]ER TRANSPORT TO PRIVATE VEHICLE.
== END 2019-07-17 14:47 | disposition home or self-care (01) | DRG 500 ==
LOC: ENTRNSPT 07-17 14:36 → EDTRNSPTSTS 07-17 14:38
PROVIDERS: Anesthesiology; Internal Medicine; Nurse Practitioner; Nurse Practitioner Family; Specialist; ADMIT Physical Medicine & Rehabilitation
DX: M00.062 Staphylococcal arthritis, left knee (principal); L89.153 Pressure ulcer of sacral region, stage 3; R65.20 Severe sepsis without septic shock; E43 Unspecified severe protein-calorie malnutrition; A41.01 Sepsis due to Methicillin susceptible Staphylococcus aureus; M86.8X6 Other osteomyelitis, lower leg; E87.1 Hypo-osmolality and hyponatremia; L02.413 Cutaneous abscess of right upper limb; F84.0 Autistic disorder; L03.115 Cellulitis of right lower limb; E11.52 Type 2 diabetes mellitus with diabetic peripheral angiopathy with gangrene; I96 Gangrene, not elsewhere classified; L02.414 Cutaneous abscess of left upper limb; D62 Acute posthemorrhagic anemia; M00.011 Staphylococcal arthritis, right shoulder; E11.69 Type 2 diabetes mellitus with other specified complication; E11.65 Type 2 diabetes mellitus with hyperglycemia; E83.51 Hypocalcemia; E66.09 Other obesity due to excess calories; E11.618 Type 2 diabetes mellitus with other diabetic arthropathy; R26.9 Unspecified abnormalities of gait and mobility; E87.6 Hypokalemia; E11.621 Type 2 diabetes mellitus with foot ulcer; L97.529 Non-pressure chronic ulcer of other part of left foot with unspecified severity; Z89.511 Acquired absence of right leg below knee; E83.42 Hypomagnesemia; R21 Rash and other nonspecific skin eruption; G47.00 Insomnia, unspecified; E11.43 Type 2 diabetes mellitus with diabetic autonomic (poly)neuropathy; K31.84 Gastroparesis; Z79.899 Other long term (current) drug therapy; Z79.84 Long term (current) use of oral hypoglycemic drugs; Z68.25 Body mass index [BMI] 25.0-25.9, adult
CPT/HCPCS: 10112; 50101; 50386; 50417; 56525; 62110; 62900; 70005

== ENCOUNTER → 2019-07-18 | Outpatient (CLI) | payer OTHER ==
[~2019-07-18] MED LIST changes: +CEFTRIAXONE2 GM IV; +IRON325 PO; +KEFLEX500 M2 PO; +METFORMIN HCL500 M1 PO; +MIRALAX17 GM PO; +PROTONIX40 M1 PO; +REGLAN 5 MG TAB5 MG PO; +REMERON 30 MG T30 M1 PO; +TYLENOL EXTRA500 MG PO
== END ==
LOC: OPONC 10:45
DX: M00.9 Pyogenic arthritis, unspecified (principal)
CPT/HCPCS: 95000

== ENCOUNTER → 2019-07-19 | Outpatient (CLI) | payer OTHER | LOC: OPONC 11:00 | DX: M00.9 Pyogenic arthritis, unspecified (principal) | CPT/HCPCS: 95000 ==

== ENCOUNTER → 2019-07-20 | Outpatient (CLI) | payer OTHER ==
[2019-07-20 14:01] LABS: HEMATOCRIT 29.9 % (42.0-52.0); HEMOGLOBIN 9.7 gm/dL (14.0-18.0); MCH 27.8 pg (26.0-34.0); MCHC 32.6 g/dL (28.0-37.0); MCV 85.2 fL (80.0-100.0); RBC 3.51 mil/uL (4.50-6.00); RDW 16.4 % (10.5-14.5); WBC 6.2 thou/uL (4.0-11.0)
[2019-07-20 14:18] LABS: ALBUMIN 2.4 g/dL (3.4-5.0); CALCIUM 8.8 mg/dL (8.5-10.1); CREATININE 0.5 mg/dL (0.7-1.3); POTASSIUM 3.7 mmol/L (3.5-5.1); TOTAL BILIRUBIN 0.3 mg/dL (<0.1-1.0); TOTAL PROTEIN 7.6 g/dL (6.4-8.2)
[2019-07-20 18:10] VITALS: BP 112/74
--- NOTE | 2019-07-20 18:15 | NUR ---
IN FOR DAILY CEFTRIAXONE INFUSION FOR SEPTIC JOINTS/OSTEOMYELITIS. PICC LINE IN [place] INTACT WITH GOOD BLOOD RETURN, SITE WNL. TOLERATED INFUSION WITHOUT INCIDENT. LABS DRAWN FROM PICC LINE WITHOUT DIFFICULTY. FAXED RESULTS TO DR. LONG. PATIENT'S MOTHER VALERIY EXCORTED PATIENT TO CLINIC AND BACK HOME. PATIENT IN HIS OWN WHEELCHAIR. PATIENT WITHDRAWN, HOWEVER RESPONDED APPROPRIATELY TO QUESTIONS ASKED. RECEIVED MOST OF HISTORY FROM MOTHER. TO RETURN TOMORROW FOR NEXT INFUSION. DISMISSED IN STABLE CONDITION.
== END ==
LOC: OPONC 03:20
PROVIDERS: Specialist
DX: M00.9 Pyogenic arthritis, unspecified (principal); M86.9 Osteomyelitis, unspecified
CPT/HCPCS: 95000

== ENCOUNTER → 2019-07-21 | Outpatient (CLI) | payer OTHER ==
[2019-07-21 14:54] VITALS: BP 109/73
--- NOTE | 2019-07-21 14:58 | NUR ---
IN FOR DAILY CEFTRIAXONE INFUSION FOR MULTIPLE SEPTIC JOINTS. RECEIVED GOOD BLOOD RETURN FROM PICC LINE AND FLUSHED EASILY. TOLERATED INFUSION WITHOUT INCIDENT. CHANGED PICC DRESSING. SITE WNL. DISMISSED IN STABLE CONDITION.
== END ==
LOC: OPONC 00:30
DX: M00.9 Pyogenic arthritis, unspecified (principal)
CPT/HCPCS: 95000

== ENCOUNTER → 2019-07-22 | Outpatient (CLI) | payer OTHER ==
[2019-07-22 12:50] VITALS: BP 117/71
--- NOTE | 2019-07-22 13:30 | NUR ---
HERE FOR DAILY CEFTRIAXONE. MOTHER BRINGING PT TO APPTS. PT AND MOM BOTH REPORT THAT THEY FEEL HE IS DOING BETTER, GETTING A LITTLE STRONGER. STATE BLOOD SUGAR CONTROL MOSTLY GOOD EXCEPT HE WILL HAVE PIZZA OR SOMETHING THAT SOUND SUPER GOOD TO HIM AND THEY WILL BE ELEVATED AFTERWARDS. PICC LINE WORKING WELL. RIGHT BKA SITE HEALING, SMALL AMT OF BLEEDING MIDDLE OF INCISION, COMPRESSION STOCKING ON. STATES HAS APPT WITH DR. RENNER COMING UP. EATING WELL, DENIES N/V/DIARRHEA. DENIES SWEATS/CHILLS. TOLERATED INFUSION WITHOUT INCIDENT. DISMISSED IN STABLE CONDITION. SCHEDULED TO RETURN AGAIN TOMORROW.
== END ==
LOC: OPONC 09:31
DX: M00.9 Pyogenic arthritis, unspecified (principal)
CPT/HCPCS: 95000

== ENCOUNTER → 2019-07-23 | Outpatient (CLI) | payer OTHER ==
[2019-07-23 12:45] VITALS: BP 103/65
--- NOTE | 2019-07-23 13:10 | NUR ---
HERE FOR DAILY IV CEFTRIAXONE INFUSION. REPORTS DOING WELL, FEELING OK, NO CONCERNS VERBALIZED. TOLERATED INFUSION PER PATENT L UPPER ARM PICC WITHOUT INCIDENT. DISMISSED IN STABLE CONDITION WITH HIS MOM. SCHEDULED TO RETURN AGAIN TOMORROW AFTERNOON. WILL SEE DR. LONG THEN WELL.
== END ==
LOC: OPONC 08:57
DX: M00.9 Pyogenic arthritis, unspecified (principal)
CPT/HCPCS: 95000

== ENCOUNTER → 2019-07-24 | Outpatient (CLI) | payer OTHER ==
[2019-07-24 16:08] VITALS: BP 124/83
--- NOTE | 2019-07-24 16:13 | NUR ---
IN FOR DAILY CEFTRIAXONE INFUSION. STATED FEELING WELL. VITAL SIGNS GOOD. DENIED FEVER/CHILLS, N/V, DIARRHEA. PICC SITE WNL WITH GOOD BLOOD RETURN. TOLERATED INFUSION WITHOUT INCIDENT. DR. LONG VISITED. PLAN IS TO CONTINUE CEFTRIAXONE THROUGH NEXT SATURDAY AND DR. LONG WILL SEE PATIENT AGAIN THEN. CALLED DR. GUERRERO REGARDING RIGHT CLAVICLE WOUND PER DR. LONG'S REQUEST. CONCERN IS IF THIS NEEDS TO BE OPENED UP AGAIN IT HAS A LARGE BLISTER/BULBOUS AREA IN THE MIDDLE OF INCISION. DR. GUERRERO UNABLE TO SEE PATIENT TODAY, HOWEVER WILL SEE PATIENT NEXT SATURDAY AT HIS OFFICE AT 1400. INFORMED PATIENT'S MOTHER, VALERIY OF THIS APPT AND LOCATION OF HIS OFFICE. PATIENT IS TO MONITOR WOUND OVER THE WEEKEND AND IF IT IS GETTING WORSE OR PATIENT HAS FEVER NEEDS TO GO TO THE EMERGENCY ROOM FOR EVALUATION. TO GP TO ED FOR HIS WEEKEND INFUSIONS. DISMISSED IN STABLE CONDITION.
== END ==
LOC: OPONC 08:09
DX: M00.9 Pyogenic arthritis, unspecified (principal)
CPT/HCPCS: 95000

== ENCOUNTER → 2019-07-25 | Outpatient (CLI) | payer OTHER | LOC: OPONC 08:15 | DX: M00.9 Pyogenic arthritis, unspecified (principal) | CPT/HCPCS: 95000 ==

== ENCOUNTER → 2019-07-26 | Outpatient (CLI) | payer OTHER | LOC: OPONC 11:45 | DX: M00.9 Pyogenic arthritis, unspecified (principal) | CPT/HCPCS: 95000 ==

== ENCOUNTER → 2019-07-27 | Outpatient (CLI) | payer OTHER ==
[2019-07-27 12:20] VITALS: BP 109/72
--- NOTE | 2019-07-27 12:45 | NUR ---
HERE FOR DAILY IV CEFTRIAXONE. REPORTS DOING WELL. TRAVELS PER W/C D/T RECENT R BKA. STATES RIGHT SHOULDER MOSTLY NOT PAINFUL EXCEPT WITH CERTAIN MOVEMENT LIKE EXTENDING HIS ARM IN FRONT OF HIM. WOUND OVER R CLAVICLE INFLAMED WITH A LITTLE RAISED POCKET, SUTURES INTACT. MOTHER STATES THIS HAS NOT BEEN DRAINING. GOING TO SEE DR. PHOENIX RIGHT AFTER TODAY'S APPT. STATES EATING WELL. DENIES N/V/DIARRHEA. NO OTHER CONCERNS NOTED. TOLERATED INFUSION WITHOUT INCIDENT. DISMISSED IN STABLE CONDITION. SCHEDULED TO RETURN AGAIN TOMORROW.
== END ==
LOC: OPONC 00:44
DX: M00.9 Pyogenic arthritis, unspecified (principal)
CPT/HCPCS: 95000

== ENCOUNTER → 2019-07-28 | Outpatient (CLI) | payer OTHER ==
[2019-07-28 15:18] VITALS: BP 106/54
--- NOTE | 2019-07-28 15:21 | NUR ---
IN FOR DAILY CEFTRIAXONE INFUSION. STATED FEELING WELL. CHANGED PICC DRESSING. GOOD BLOOD RETURN FROM PICC AND FLUSHED EASILY. SITE WNL. TOLERATED INFUSION WITHOUT INCIDENT. DRESSING OVER RIGHT CLAVICLE INTACT WITH SMALL AMOUNT OF SANGUINOUS DRAINAGE. DENIED N/V, DIARRHEA, PAIN, FEVER/CHILLS. TO RETURN TOMORROW FOR NEXT INFUSION. DISMISSED IN STABLE CONDITION.
== END ==
LOC: OPONC 00:18
DX: M00.9 Pyogenic arthritis, unspecified (principal)
CPT/HCPCS: 95000

== ENCOUNTER → 2019-07-29 | Outpatient (CLI) | payer OTHER ==
[2019-07-29 12:50] VITALS: BP 102/72
[2019-07-29 13:05] LABS: HEMATOCRIT 33.2 % (42.0-52.0); HEMOGLOBIN 10.8 gm/dL (14.0-18.0); MCH 27.5 pg (26.0-34.0); MCHC 32.4 g/dL (28.0-37.0); MCV 84.8 fL (80.0-100.0); RBC 3.91 mil/uL (4.50-6.00); RDW 15.3 % (10.5-14.5); WBC 6.7 thou/uL (4.0-11.0)
--- NOTE | 2019-07-29 13:15 | NUR ---
HERE FOR DAILY IV ROCEPHIN INFUSION. REPORTS DOING WELL, FEELING WELL. MORE INTERACTIVE. MOM STATES HE IS DOING MUCH BETTER. MOBILIZING WELL, EATING GREAT, GETTING A GOOD HANDLE ON BLOOD SUGAR MANAGEMENT. SAW DR. PHOENIX ON SATURDAY, STATES CLAVICLE INCISION WAS DRAINED, THOUGHT THIS WAS A BLOOD POCKET. NOW LESS PAIN. AREA STILL A LITTLE RAISED AND REDDENED. BONE SEEMS MORE PRONOUNCED THAN L SIDE. SUTURES WERE REMOVED. CLEANSED WITH SALINE AND BANDAID APPLIED. LABS DRAWN TODAY. TOLERATED INFUSION WITHOUT INCIDENT. DISMISSED IN STABLE CONDITION. SCHEDULED TO RETURN TOMORROW.
[2019-07-29 13:25] LABS: ALBUMIN 2.8 g/dL (3.4-5.0); CREATININE 0.6 mg/dL (0.7-1.3); POTASSIUM 3.7 mmol/L (3.5-5.1); TOTAL BILIRUBIN 0.3 mg/dL (<0.1-1.0); TOTAL PROTEIN 7.6 g/dL (6.4-8.2)
== END ==
LOC: OPONC 02:28
PROVIDERS: Specialist
DX: M00.9 Pyogenic arthritis, unspecified (principal)
CPT/HCPCS: 95000

== ENCOUNTER → 2019-07-30 | Outpatient (CLI) | payer OTHER ==
[2019-07-30 13:16] VITALS: BP 112/77
--- NOTE | 2019-07-30 13:18 | NUR ---
IN FOR DAILY CEFTRIAXONE INFUSION. STATED FEELING OK. DENIED PAIN, N/V, DIARRHEA, FEVER/CHILLS. TOLERATED INFUSION WITHOUT INCIDENT. RECEIVED GOOD BLOOD RETURN FROM PICC LINE AND FLUSHED EASILY. SITE WNL. TO RETURN TOMORROW FOR NEXT INFUSION. DISMISSED IN STABLE CONDITION.
== END ==
LOC: OPONC 02:04
DX: M00.9 Pyogenic arthritis, unspecified (principal)
CPT/HCPCS: 95000

== ENCOUNTER → 2019-07-31 | Outpatient (CLI) | payer OTHER ==
[2019-07-31 12:50] VITALS: BP 113/71
--- NOTE | 2019-07-31 14:20 | NUR ---
PT IN FOR DAILY IV CEFTRIAXONE. REPORTS DOING WELL, FEELING WELL. NO N/V/DIARRHEA. NO FEVER/CHILLS/SWEATS. MINIMAL PAIN R CLAVICLE WITH SOME MOVEMENTS. SEEN BY DR. LONG TODAY. ORDERS RECEIVED. PICC LINE REMOVED, SITE LOOKS GREAT. SCRIPT FOR CEPHALEXIN 500MG 2 TABS PO BID #120, 2 REFILLS CALLED IN TO PT'S PHARMACY, [facility], . PT INSTRUCTED TO WELDER ASSISTANT TODAY AND BEGIN IN THE MORNING. RETURN APPT TO SEE DR. LONG SET UP FOR 08/14 AT 1300. PT WILL KEEP F/U APPT WITH DR. PHOENIX. AWAITING MEDICAID APPROVAL PRIOR TO SELECTING PCP SO HE KNOW WHICH PCP WILL ACCEPT HIS PLAN. PT AND MOM PLEASED WITH PROGRESS AND THE SWITCH TO ORAL ANTIBIOTICS. VERBALIZED UNDERSTANDING OF PLAN. DISMISSED IN STABLE CONDITION.
--- NOTE | 2019-08-20 19:00 | HC ---
[facility] [place] [address] CONSULTATION Name: JANE DEMARCO [id number] Admission: 07/31/19 Attend Phys: Obdulio Savage MD Discharge: Date of : 71 Report #: [id number] THIS REPORT FOR: //name// CC: Obdulio Savage [facility] physician/PCP OUTPATIENT CLINIC INFECTIOUS DISEASE NOTE HISTORY OF PRESENT ILLNESS: The patient remains on ceftriaxone, now day 57 following initial surgical debridement of his right sternoclavicular joint. He ended up going back in for a second debridement on 07/12/2019. He was therefore now 19 days following the surgery. He had some swelling along his incision with blistering. This was debrided first of the week by ____. I discussed with him by phone following his debridement. There was no evidence of deep tissue sinus tract. He thought it was more superficial. Range of motion in his shoulder has improved. His pain is much less. He has had no further fever, chills or sweats. Overall, feels well. No nausea, vomiting or diarrhea. He has a left upper extremity PICC, which is functioning well. Blood glucose control is better. No other GI or complaints. He has had no further drainage from his right sternoclavicular joint incisional wound. LABORATORY STUDIES: Reviewed. Sedimentation rate has dropped to 75. His creatinine is 0.6. Hemoglobin 10.8 and WBC 6.7. IMPRESSION: 1. Methicillin-susceptible Staph aureus, right sternoclavicular joint arthritis with osteomyelitis, status post debridement, now 8 weeks following initial debridement and 3 weeks following his subsequent debridement. He has cleared his bacteremia. His right below knee amputation stump has some eschar at the mid portion, but overall showing signs of improvement. His left knee range of motion has improved. 2. Diabetes. 3. Right foot osteomyelitis and gangrene, status post below-knee amputation. 4. Left septic knee arthritis, improved. RECOMMENDATIONS: We will continue with cephalexin 1 g p.o. b.i.d. for the next month and we will reassess his progress. I would like his inflammatory markers to normalize. He will follow up in 2 weeks with a plan for CBC, CMP, ESR and a clinic visit. Continue to control his diabetes. Maintain nutritional status. <ELECTRONICALLY SIGNED> By: Obdulio Savage MD 08/20/19 1900 [id number] [id number] Obdulio Savage MD /nt
== END ==
LOC: OPONC 09:18
DX: M00.9 Pyogenic arthritis, unspecified (principal)
CPT/HCPCS: 95000

== ENCOUNTER → 2019-08-14 | Outpatient (CLI) | payer OTHER ==
[2019-08-14 13:17] LABS: HEMATOCRIT 34.2 % (42.0-52.0); HEMOGLOBIN 11.6 gm/dL (14.0-18.0); MCH 27.7 pg (26.0-34.0); MCHC 33.8 g/dL (28.0-37.0); RBC 4.18 mil/uL (4.50-6.00); WBC 7.2 thou/uL (4.0-11.0)
[2019-08-14 13:34] LABS: ALBUMIN 2.9 g/dL (3.4-5.0); CALCIUM 8.8 mg/dL (8.5-10.1); CREATININE 0.6 mg/dL (0.7-1.3); POTASSIUM 3.2 mmol/L (3.5-5.1); TOTAL BILIRUBIN 0.4 mg/dL (<0.1-1.0); TOTAL PROTEIN 7.2 g/dL (6.4-8.2)
[2019-08-14 14:00] VITALS: BP 119/79
--- NOTE | 2019-08-14 14:00 | NUR ---
HERE FOR CLINIC VISIT WITH DR. LONG. LOOKS WELL. REPORTS FEELING WELL, EATING WELL, NO PAIN. DENIES FEVERS/CHILLS/SWEATS. DOES HAVE SOME DIARREHA--ONE LOOSE OR WATERY STOOL/DAY WITH SOME FORMED STOOL MIXED IN. STILL ON BID CEPHALEXIN. SEEN BY DR. LONG. ADVISED TO CONTINUE ORAL ANTIBIOTIC, ADD IMODIUM PER PACKAGE DIRECTIONS AND RETURN HERE FOR F/U APPT WITH DR. LONG. PT AND MOTHER VERBALIZED UNDERSTANDING OF PLAN. DISMISSED IN STABLE CONDITION.
--- NOTE | 2019-08-20 19:01 | HC ---
[facility] [place] [address] CONSULTATION Name: JANE DEMARCO Room #: [facility].#: [id number] Admission: 08/14/19 Attend Phys: Obdulio Savage MD Discharge: Date of : 71 Report #: [id number] THIS REPORT FOR: //name// CC: Obdulio Savage [facility] physician/PCP DATE OF SERVICE: 08/14/2019 OUTPATIENT CLINIC INFECTIOUS DISEASE NOTE HISTORY OF PRESENT ILLNESS: The patient is now 10 weeks into his treatment course for right sternoclavicular osteomyelitis. He underwent second debridement on 07/12/2019. Continues to have fair amount of swelling in the region. This was debrided by Dr. Dangelo 2 weeks ago. This has improved significantly. His range of motion in the shoulder has improved. Denies any fever, chills or sweats. He has had good blood glucose control according to his mother. He still has issues with loose stools. He has been on cephalexin without any other side effect. Denies any rash, or abdominal pain. REVIEW OF SYSTEMS: No cough or sputum production. No chest pain. PHYSICAL EXAMINATION: VITAL SIGNS: He is afebrile and hemodynamically stable. EXTREMITIES: Right sternoclavicular wound was epithelialized. Very mild erythema. No fluctuance and no tenderness. He has full range of motion in his shoulder. CHEST: Clear. HEART: Regular. ABDOMEN: Soft, nontender. Left knee had good range of motion. LABORATORY STUDIES: Hemoglobin 11.6, white count 7.2, platelet count 327,000. Creatinine 0.6. Liver function tests normal. CRP 47. I am awaiting his ESR. His last ESR was 75. IMPRESSION: 1. Methicillin-susceptible Staphylococcus aureus right sternoclavicular joint arthritis with osteomyelitis, now 10 weeks into his treatment course and 5 weeks following his last debridement. He has cleared his bacteremia. His right aplrh-jro-edds amputation stump remained stable. His left knee also remained stable. 2. Diabetes. 3. Right foot osteomyelitis with gangrene, status post below-knee amputation. RECOMMENDATIONS: We will continue cephalexin. Follow his inflammatory markers. Repeat laboratory and ID followup in 2 weeks. Discussed with his mother [facility] [address] [place] [address] CONSULTATION Name: JANE DEMARCO Room #: [facility].#: [id number] Admission: 08/14/19 Attend Phys: Obdulio Savage MD Discharge: Date of : 71 Report #: [id number] regarding use of Imodium for loose stools. He will also continue with blood glucose control. <ELECTRONICALLY SIGNED> By: Obdulio Savage MD 08/20/191900 [id number] 50 Obdulio Savage MD /nt
== END ==
LOC: OPONC 03:56
PROVIDERS: Specialist
DX: E11.69 Type 2 diabetes mellitus with other specified complication (principal); M86.8X7 Other osteomyelitis, ankle and foot; M00.9 Pyogenic arthritis, unspecified; E11.52 Type 2 diabetes mellitus with diabetic peripheral angiopathy with gangrene; I96 Gangrene, not elsewhere classified; Z89.431 Acquired absence of right foot
CPT/HCPCS: 91016

== ENCOUNTER → 2019-08-28 | Outpatient (CLI) | payer OTHER ==
[2019-08-28 13:34] LABS: HEMATOCRIT 40.4 % (42.0-52.0); HEMOGLOBIN 13.1 gm/dL (14.0-18.0); MCH 26.8 pg (26.0-34.0); MCHC 32.3 g/dL (28.0-37.0); MCV 82.9 fL (80.0-100.0); RBC 4.88 mil/uL (4.50-6.00); RDW 14.4 % (10.5-14.5); WBC 7.1 thou/uL (4.0-11.0)
[2019-08-28 13:47] LABS: ALBUMIN 3.6 g/dL (3.4-5.0); CALCIUM 9.4 mg/dL (8.5-10.1); CREATININE 0.7 mg/dL (0.7-1.3); POTASSIUM 3.3 mmol/L (3.5-5.1); TOTAL BILIRUBIN 0.5 mg/dL (<0.1-1.0)
[2019-08-28 14:15] VITALS: BP 144/84
--- NOTE | 2019-08-28 14:15 | NUR ---
PT HERE TO SEE DR. LONG IN F/U FOR MULTIPLE SEPTIC JOINTS. LOOKS GREAT. STATES FEELING WELL. DENIES N/V, FEVERS. DOES STILL HAVE TO MANAGE DIARRHEA. STILL ON ORAL CEPHALEXIN. AWAITS PROSTHESIS THEN HOPEFUL TO BEING PHYSICAL THERAPY TO BEGIN WALKING AGAIN. MOTHER HAS BEEN HELPING WITH SETTING UP CARE WITH A NEW PCP BUT PT HAS YET TO GET IN TO THIS NEW PHYSICIAN. PT JUST RAN OUT OF HIS METFORMIN, SCRIPT CALLED IN TO PT'S PHARMACY PER DR. LONG ORDER: [facility] AT [phone]. MOTHER WILL STRIP FEEDER LATER TODAY. LABS DRAWN WITH THIS VISIT AND REVIEWED BY DR. LONG. SCHEDULED TO RETURN FOR F/U VISIT AGAIN IN 2 WEEKS. DISMISSED IN STABLE CONDITION.
== END ==
LOC: OPONC 08:53
PROVIDERS: Specialist
DX: M00.011 Staphylococcal arthritis, right shoulder (principal); B95.61 Methicillin susceptible Staphylococcus aureus infection as the cause of diseases classified elsewhere; M86.8X8 Other osteomyelitis, other site
CPT/HCPCS: 91016

== ENCOUNTER → 2019-09-11 | Outpatient (CLI) | payer OTHER ==
[2019-09-11 13:21] LABS: HEMATOCRIT 41.8 % (42.0-52.0); HEMOGLOBIN 13.5 gm/dL (14.0-18.0); MCH 26.8 pg (26.0-34.0); MCHC 32.4 g/dL (28.0-37.0); MCV 82.8 fL (80.0-100.0); RBC 5.05 mil/uL (4.50-6.00); RDW 14.7 % (10.5-14.5); WBC 5.8 thou/uL (4.0-11.0)
[2019-09-11 13:31] LABS: ALBUMIN 3.7 g/dL (3.4-5.0); CALCIUM 8.9 mg/dL (8.5-10.1); CREATININE 0.6 mg/dL (0.7-1.3); POTASSIUM 3.2 mmol/L (3.5-5.1); TOTAL BILIRUBIN 0.5 mg/dL (<0.1-1.0); TOTAL PROTEIN 7.5 g/dL (6.4-8.2)
[2019-09-11 13:45] VITALS: BP 154/91
--- NOTE | 2019-09-11 13:45 | NUR ---
PT HERE TO SEE DR. LONG IN F/U. LOOKS GREAT. REPORTS EATING WELL, KEEPING BLOOD SUGARS IN CONTROL, NO PAIN. R BKA INCISION LOOKS WELL HEALED. R CLAVICLE INCISIONS LOOKS GOOD TOO. HAS APPT SET UP WITH NEW PCP. MOTHER WORKING WITH AGENCY WHO WILL MEASURE FOR AND EVENTUALLY ORDER PROSTHESIS. PT SEEN BY DR. LONG, OK'D TO STOP BACTRIM. NO NEED TO F/U UNLESS NEEDS ARISE. DISMISSED IN STABLE CONDITION.
--- NOTE | 2019-09-15 21:01 | HC ---
[facility] [place] [address] CONSULTATION Name: JANE DEMARCO Room #: [facility].#: [id number] Admission: 09/11/19 Attend Phys: Obdulio Savage MD Discharge: Date of : 71 Report #: [id number] THIS REPORT FOR: //name// CC: Obdulio OVALLE unknown FOLLOWUP OUTPATIENT ID VISIT ID NOTE Followup right sternoclavicular osteomyelitis, left knee septic arthritis due to methicillin-susceptible Staph aureus. HISTORY OF PRESENT ILLNESS: The patient has completed 14 weeks of antibiotic therapy. He is on cephalexin. Main side effect has been loose stools. No fever, chills or sweats. Blood glucose control has been satisfactory. No pain in his right shoulder or chest. He has full range of motion now on his knee. He has been ambulating reasonably well with his walker. He is yet to have his right BKA stump assessed for prosthesis. PHYSICAL EXAMINATION: GENERAL: Afebrile and hemodynamically stable. He is alert and cooperative. Right sternoclavicular incisional scar was well healed. He had full range of motion in his shoulder. CHEST: Clear. HEART: Regular, without murmur. ABDOMEN: Soft and nontender. Left knee range of motion was normal. Right BKA incision was intact without erythema or tenderness. LABORATORY STUDIES: Creatinine 0.6. Liver function test normal. Hemoglobin 13.5, white count 5.8, platelet count 253,000. CRP 5.8. ESR pending. IMPRESSION: 1. Methicillin-susceptible Staph aureus right sternoclavicular joint arthritis with osteomyelitis, left knee septic arthritis and right ankle osteomyelitis, status post debridement of his right sternoclavicular joint along with right BKA and incision and drainage of his left knee. He has completed 14 weeks of antibiotic therapy. 2. Diabetes. RECOMMENDATIONS: We will have the patient finished his course of antibiotic therapy. He will follow up with his primary care next week. He will continue [address] [place] [address] CONSULTATION Name: JANE DEMARCO Room #: [facility].#: [id number] Admission: 09/11/19 Attend Phys: Obdulio Savage MD Discharge: Date of : 71 Report #: [id number] to use Imodium as needed for his antibiotic-associated diarrhea. We will follow up on an as needed basis. <ELECTRONICALLY SIGNED> By: Obdulio Savage MD 09/15/19 2101 1404 0021 Obdulio Savage MD /nt
== END ==
LOC: OPONC 00:13
PROVIDERS: Specialist
DX: E11.69 Type 2 diabetes mellitus with other specified complication (principal); M86.8X1 Other osteomyelitis, shoulder; M86.8X7 Other osteomyelitis, ankle and foot; M00.062 Staphylococcal arthritis, left knee
CPT/HCPCS: 91016